=== PATIENT | female | born 1980 | race Caucasian/White ===

== ENCOUNTER 2019-02-19 14:12 | Outpatient (CLI) | payer OTHER, SELFPAY ==
[2019-02-19 14:49] LABS: Abs Immature Grans 0.02 k/cumm (0.0-0.09); Absolute Basophil Count 0.05 k/cumm (0.0-0.2); Absolute Eosinophil Count 0.25 k/cumm (0.0-0.7); Absolute Lymphocyte Count 2.14 k/cumm (1.2-3.4); Absolute Monocyte Count 0.88 k/cumm (0.11-0.7); Absolute Neutrophil Count 6.93 k/cumm (1.2-6.7); Basophils % 0.5; Eosinophils % 2.4; HCT 39.4 % (36.0-46.0); HGB 13.1 g/dL (12.0-15.5); Immature Grans % 0.2; Lymphocytes % 20.8; Mean Corp. HGB Concentration 33.2 g/dL (32.0-36.0); Mean Corpuscular Hemoglobin 28.3 pg (27.0-33.0); Mean Corpuscular Volume 85.1 fL (80-95); Mean Platelet Volume 9.1 fL (8.0-11.0); Monocytes % 8.6; Neutrophils % 67.5; Platelet Count 393 x1000/uL (130-400); RBC 4.63 m/cumm (4.00-5.20); White Blood Cell Count 10.27 k/cumm (4.4-10.8)
[2019-02-19 15:28] LABS: *AMPHETAMINES SCREEN URINE Negative (Negative); *BARBITURATES SCREEN URINE Negative (Negative); *BENZODIAZEPINES SCREEN URINE Negative (Negative); Cannabinoids THC Negative (Negative); Cocaine Screen,Urine Negative (Negative); METHADONE URINE SCREEN Negative (Negative); OPIATES URINE SCREEN Negative (Negative)
[2019-02-19 15:33] LABS: Tricyclic Antidepressants Negative (Negative)
[2019-02-20 10:04] LABS: Varicella IgG Antibody Positive
[2019-02-20 10:17] LABS: Rubella IgG Ab (UVM) Positive; Syphilis Serology (RPR) Negative (Negative)
[2019-02-20 10:32] LABS: Hepatitis B Surface Ag Negative (NEGAT)
[2019-02-20 10:43] LABS: Hepatitis C Ab w Rflx HCV PCR Negative (NEGAT)
[2019-02-20 11:35] LABS: HIV-1/2 Ag & Ab Screen Negative (NEGAT)
== END 2019-02-19 14:32 ==
PROVIDERS: PCP Nurse Practitioner Family; Visit Provider Obstetrics & Gynecology
DX: Z34.91 Encounter for supervision of normal pregnancy, unspecified, first trimester (principal); Z11.4 Encounter for screening for human immunodeficiency virus [HIV]; Z11.59 Encounter for screening for other viral diseases; Z01.84 Encounter for antibody response examination
CPT/HCPCS: 80055; 80307; 86787; 86803; 86850; 86900; 86901; 87340; 87389; 84443; 86592; 86762; 87086

== ENCOUNTER 2019-03-13 16:35 | Outpatient (CLI) | payer OTHER, SELFPAY | END 2019-03-13 16:55 | PROVIDERS: PCP Nurse Practitioner Family; Visit Provider Obstetrics & Gynecology | DX: Z34.91 Encounter for supervision of normal pregnancy, unspecified, first trimester (principal) | CPT/HCPCS: 36415; 84702 ==

== ENCOUNTER 2019-03-15 16:59 | Outpatient (CLI) | payer OTHER, SELFPAY | END 2019-03-15 17:19 | PROVIDERS: PCP Nurse Practitioner Family; Visit Provider Obstetrics & Gynecology | DX: Z34.91 Encounter for supervision of normal pregnancy, unspecified, first trimester (principal) | CPT/HCPCS: 36415; 84702 ==

== ENCOUNTER 2019-03-27 07:34 | Outpatient (CLI) | payer OTHER, SELFPAY | END 2019-03-27 07:54 | PROVIDERS: PCP Nurse Practitioner Family; Visit Provider Obstetrics & Gynecology | DX: O02.1 Missed abortion (principal) | CPT/HCPCS: 36415; 86850; 86900; 86901; 90384 ==

== ENCOUNTER 2019-06-14 08:47 | Outpatient (CLI) | payer OTHER, SELFPAY | END 2019-06-14 09:07 | PROVIDERS: PCP Nurse Practitioner Family; Visit Provider Obstetrics & Gynecology | DX: O20.0 Threatened abortion (principal) | CPT/HCPCS: 36415; 86850; 90384 ==

== ENCOUNTER 2019-09-03 08:39 | Outpatient (CLI) | payer OTHER, SELFPAY ==
[2019-09-04 11:16] LABS: Lyme Ab w Rflx to Lyme Confirm Negative (Negative)
[2019-09-06 03:53] LABS: Anaplasma phagocytophilum Negative (Negative); B. miyamotoi PCR Negative (Negative); Babesia divergens/MO-1 Negative (Negative); Babesia duncani Negative (Negative); Babesia microti Negative (Negative); Ehrlichia chaffeensis Negative (Negative); Ehrlichia ewingii/canis Negative (Negative); Ehrlichia muris eauclairensis Negative (Negative)
== END 2019-09-03 08:59 ==
PROVIDERS: PCP Nurse Practitioner Family; Visit Provider Nurse Practitioner Family
DX: M25.50 Pain in unspecified joint (principal); H49.03 Third [oculomotor] nerve palsy, bilateral; H53.2 Diplopia
CPT/HCPCS: 36415; 87798; 86618

== ENCOUNTER 2019-12-28 01:47 | Outpatient (CLI) | payer OTHER, SELFPAY ==
[2019-12-28 15:22] LABS: Abs Immature Grans 0.02 10^3/uL (0.0-0.06); Absolute Basophil Count 0.05 10^3/uL (0.0-0.2); Absolute Eosinophil Count 0.22 10^3/uL (0.0-0.7); Absolute Lymphocyte Count 1.65 10^3/uL (1.2-3.4); Absolute Monocyte Count 0.86 10^3/uL (0.1-0.8); Absolute Neutrophil Count 5.76 10^3/uL (1.2-6.7); Basophils % 0.6; Eosinophils % 2.6; HCT 38.5 % (36.0-46.0); HGB 12.5 g/dL (11.2-15.7); Immature Grans % 0.2; Lymphocytes % 19.3; MCH 26.8 pg (27.0-33.0); MCHC 32.5 % (32.0-36.0); MCV 82.4 fL (80-95); MPV 9.9 fL (8.0-11.0); Neutrophils % 67.3; Nucleated RBC 0 %; Platelet Count 300 10^3/uL (130-400); RBC 4.67 10^6/uL (3.93-5.22); RDW 17.7 % (11.7-14.6); RDW-SD 53.2 fL; WBC 8.56 10^3/uL (4.4-10.8)
[2019-12-28 16:18] LABS: TSH (W/Ref FT4) 2.44 uIU/mL (0.36-3.74)
[2019-12-28 17:29] LABS: *AMPHETAMINES SCREEN URINE Negative (Negative); *BARBITURATES SCREEN URINE Negative (Negative); *BENZODIAZEPINES SCREEN URINE Negative (Negative); Cannabinoids THC Negative (Negative); Cocaine Screen,Urine Negative (Negative); METHADONE URINE SCREEN Negative (Negative); OPIATES URINE SCREEN Negative (Negative)
[2019-12-28 17:31] LABS: Tricyclic Antidepressants Negative (Negative)
[2019-12-31 10:03] LABS: Hepatitis B Surface Ag Negative (Negative)
[2019-12-31 10:47] LABS: Hepatitis C Ab w Rflx HCV PCR Negative (Negative)
[2019-12-31 11:03] LABS: HIV-1/2 Ag & Ab Screen Negative (Negative)
[2019-12-31 12:15] LABS: Rubella IgG Ab (UVM) Positive (See Note); Varicella IgG Antibody Positive (See Note)
[2019-12-31 16:28] LABS: Syphilis Total Ab w/Reflex Nonreactive (Nonreactive)
[2020-01-03 11:33] LABS: Buprenorphine Negative; Norbuprenorphine Negative
== END 2019-12-28 02:07 ==
PROVIDERS: PCP Nurse Practitioner Family; Visit Provider Advanced Practice Midwife
DX: Z34.91 Encounter for supervision of normal pregnancy, unspecified, first trimester (principal)
CPT/HCPCS: 36415; 80307; 86787; 86803; 86850; 86900; 86901; 87340; 87389; 84443; 85025; 86762; 86780; 87086

== ENCOUNTER 2020-01-24 18:28 | Inpatient (IN) | payer OTHER, MEDICAID, SELFPAY ==
[2020-01-24] VITALS (15 sets, daily range): BP systolic 146–189; BP diastolic 78–110; PULSE 63–75; RESP 17–18; TEMP 36.6–37.1; O2SAT 100
--- NOTE | 2020-01-24 17:06 | NUR.NOTE ---
no fhr detected with doppler/us. demiseNursing Note:
--- NOTE | 2020-01-24 18:45 | HPE_ITS ---
Date of service: 01/24/20 Time of Service: 18:45 Assessment and Plan Assessment and plan (1) demise before 20 weeks with retention of fetus: Start date: 01/24/20 Start time: 16:58 Status: Acute Assessment and plan: 39 yo @ 16 wks called at 1615 today to report lower abd cramps menstrual in nature and the appearance of brown vaginal mucous with a foul odor. Pt has had 2 miscarriages in the recent past and was very worried today. She came to the for FHT check and evaluation of spotting. No FHT were detected with doptone, bedside ultrasound done transabdominally, no movement or cardiac activity were seen. Katelyn Foster summoned to bedside where he repeated the ultrasound to confirm IUFD. Femur length consistent with 14 wks. Pt appropriately grieving, pt notified family, options discussion with Dr. Zepeda occurred. Pt desires misoprostel induction to begin today. A: 2nd trimester loss, AMA, hypertension, increased risk for PPH due to hx and current HTN, Rh neg P: Collaborative management, admit, pre-e labs, T&S, COVID swab, IV access, begin misoprostel vaginal protocol per Dr. Zepeda, pain medication as requested by pt, anti-hypertensive Rx per Dr. Zepeda. (2) Hypertension affecting , antepartum: Start date: 01/24/20 Start time: 19:05 Status: Acute Assessment and plan: BP's since arrival have been consistently elevated 170's over 90-100 Reflexes are nml, no dependent edema Pt denies NAVA or visual changes, no RUQ pain Pt has hx pre-eclampsia with previous , managed with labetalol Initial BP at dating ultrasound in first trimester 144/84 A: HTN of unknown etiology, r/o essential HTN vs associated pathology P: Per Dr. Zepeda, will give 20 mg labetalol IV, hand off to Dr. Gonsalez this evening OB-HPI Labor/Delivery History of Present Illness Reason for Visit: came in for FHT check, c/o cramps/brown spotting Chief Complaint: Other (16 wks by dating, IUFD with 14 wk femur length, missed 2nd trimester SAB). ANDRAE Calculator 2 Estimated Delivery Date Method Current WG Current Estimate 07/13/20 Ultrasound #1 15w 4d Other Estimates 07/11/20 LMP (Certain) 15w 6d History of Present Expected Delivery Route/Plan - CNM FOB - Specific Issues/Plan 1. AMA: declines all optional screening (declination signed) & MFM consult w/ Level II usg. 2. Declined pelvic @ IOB 2` to increased anxiety r/t SAB x2 thus GC/CT @ 2nd pnv. 3. Increased for Pre-eclampsia, accepts low dose ASA to start 12/30/19. 4. Rh negative, RhoGam @ 28 wks Assessment: History Reviewed & Current Informed Consent Informed Consent: Induction of Labor (At 16 wks, IUFD) and Risk,Benefits,Alternatives Discussed Review of Systems All systems reviewed & are unremarkable except as noted in HPI and below PFSH Medical History (Updated 01/24/20 @ 18:56 by Veronica Molina) Asthma Complex cyst of left ovary noted 04/2014. 3.6cm. Unchanged in size or appearance 08/07/14. Pt declines Endometriosis Onset of sx 19yo. 1999 2006 at time of diagnostic laparoscopy. Rx with DepoLupron x6mo. 2007 breastfed until 2008 2010 breastfed until 2011 NFP since then. OCPs do not agree with pt. Endometriosis determined by laparoscopy SI joint discomfort With previous pregnancies. Referred to PT 07/01/15. Surgical History Diagnostic Laproscopy (~2006) Dr Higgins stage 4 endometriosis Hernia Repair, Incisional (02/03/16) Family History Sister Endometriosis s/p EDNA/BSO @ 32yo Mother Essential hypertension Personal history of malignant neoplasm basal cell skin cancer Father Diabetes Elevated Hgb A1C Sister Cerebral aneurysm Sister No problems noted. Sister No problems noted. Social History Smoking/Tobacco Use Status: Never Drug use: Never Current gender identity: female Seatbelt use: always History History 5 Para 3 Hx # Term Pregnancies 3 Multiple births 0 Hx # Pregnancies 0 Ectopic pregnancies 0 AB induced 0 Hx Number of Living Children 3 AB spontaneous 2 Past Pregnancies Del. Date GA/Weeks # Outcome Route Wgt Sex Labor Lgth Anesthes ia Location Prov Complic 05/15/08 38 No Successful vaginal 8 lb 13 oz Male 18 hr [facility]. 04/04/11 40 No Successful vaginal 8 lb 12 oz Female 8 hrs [facility] w/ hemorrhage 10/25/15 37 No Successful vaginal 7 lb 8 oz Female 24 hr anea 03/21/19 8 06/18/19 6 Unsuccessful Delivery Date: 05/15/08 probable pre-eclampsia w/o mgso4. GARRETT CANO Delivery Date: 04/04/11 pt denies transfusion ebl? went home just over 24 hrs delivery. ? if pph. GARRETT CANO Delivery Date: 10/25/15 iol for pre-eclampsia w/ mgso4. and hydralazine. TAMIKOGAVINGARRETT KIM Delivery Date: 03/21/19 Pt had a miscarriage at home on 03/21/19. Pt in today for her Kelly Cohen FISHER NET,Elida Delivery Date: 06/18/19 SAB 06/18/19 at 6.4 weeks gestation, [facility] Home Medications and Allergies Home Medications Medication Instructions Recorded Confirmed Type vitamin-ferrous fumarate 1 tab PO DAILY 05/28/19 12/13/19 History 28 mg iron-folic acid 800 mcg tablet loratadine 10 mg tablet 10 mg PO DAILY 11/06/19 12/13/19 History acetaminophen 325 mg tablet 325 - 650 mg PO Q4H PRN tab-cap 12/28/19 History Allergies Allergy/AdvReac Type Severity Reaction Status Date / Time ENVIRONMENTAL Allergy Mild Uncoded 12/28/19 13:25 Exam Physical Exam Vital signs: Pulse BP 72 172/105 H 01/24/20 17:10 01/24/20 17:10 Vital Signs Reviewed: Yes Constitutional Constitutional: no acute distress, average body habitus and cooperative Comments: appropriately grieving Detailed Labor and Delivery Exam Keller Score: Cervical Points Exam 0 1 2 3 Dilation Closed 1-2cm 3-4 cm 5-6cm Effacement 0-30% 40-50% 60-70% 80% Consistency Firm Medium Soft Station -3 -2 -1,0 +1,+2 Position Posterior Mid Anterior Fetus A Assessment Note: , no movement or cardiac activity on abd ultrasound HEENT Exam HEENT Exam: Normal Neck Exam Neck Exam: Normal Respiratory Exam Respiratory Exam: Normal Cardiovascular Exam Cardiovascular Exam: Abnormal (hypertension noted upon admission) Abdominal Exam Abdominal Exam: Normal Exam Exam: Normal Extremities Exam Extremities Exam: Normal Back/Spine/Pelvis Exam Back Exam: Normal Pelvis Adequate: Yes Skin Exam Skin Exam: Normal Neurological Exam Neurological Exam: Normal (normoreflexic) Psychiatric Exam Psychiatric Exam: Normal Results Results Group Beta Strep: N/A Blood Type: O- Rubella Status: Immune Varicella Immunity: Immune Risk Assessment Risk for Shoulder Dystocia Historical/Initial OB: NEGATIVE FOR: Pelvic Abnormality, Pre- BMI>30, Previous Shoulder Dystocia or Previous Macrosomia Increased Risk?: No (as of IOB 12/28/19 al) Risk for Pre-Eclampsia Daily Dose ASA Indicated: Yes (12/28/19 h/o pre-eclampsia w/ last & probably w/ 1st. Tx w/ mgso4 .) Date Initiated/Initials: 12/28/19 al Yes, if one or more: POSTIVE FOR: Hx Pre-E/Gest HTN; NEGATIVE FOR: Chronic HTN, Multiple Gestation, Pre-gestational DM, Renal Disease, Systemic Lupus or APA Syndrome Yes, if 2 or more: POSITIVE FOR: Age>= 35 yrs and Mother/Sister w/ Pre-E; NEGATIVE FOR: Nulliparity, >10yr btwn pregnancies, BMI>30, ethinicty or Previous IUGR Risk for Post- Hemorrhage Initial: POSITIVE FOR: Previous PPH (2nd w/o transfusion ? ebl @ IOB 12/28/19 al); NEGATIVE FOR: Multiple Gestation, Known Clotting Deficiency, Grand Multiparity or Anticoagulation At Risk?: Yes (IOB 12/28/19:pt self reports h/o pph as told to her by Dr. Riggins. al) Risks Reviewed Risks Reviewed Upon Admission: Yes
[2020-01-24 19:13] LABS: HCT 40.4 % (36.0-46.0); HGB 13.2 g/dL (11.2-15.7); MCH 27.8 pg (27.0-33.0); MCHC 32.7 % (32.0-36.0); MCV 85.1 fL (80-95); Platelet Count 280 10^3/uL (130-400); RBC 4.75 10^6/uL (3.93-5.22); RDW 15.9 % (11.7-14.6); RDW-SD 50.7 fL
[2020-01-24 19:38] LABS: ALT 13 U/L (14-59); AST 14 U/L (15-37); Albumin 3.8 g/dL (3.4-5.0); Alkaline Phosphatase 121 U/L (46-116); Anion Gap 13.1 mmol/L (3-11); BUN 8 mg/dL (7-18); Bilirubin, Total 0.2 mg/dL (0.2-1.0); CO2 21.9 mmol/L (21.0-32.0); CREATININE 0.61 mg/dL (0.55-1.02); Calcium 9.3 mg/dL (8.5-10.1); Chloride 103 mmol/L (98-107); Glucose 94 mg/dL (74-106); Potassium 3.2 mmol/L (3.5-5.1); Sodium 138 mmol/L (136-145); Total Protein 7.6 g/dL (6.4-8.2); Uric Acid 5.1 mg/dL (2.6-6.0)
[2020-01-24] MEDS: miSOPROStol 200 MCG TAB (19:54)
[2020-01-24] MEDS: Labetalol 100 MG/20 ML VIAL 20 MG IVP (20:00)
[2020-01-24 20:31] LABS: HCG Quant, Pregnancy 1629 mIU/mL (1-3)
--- NOTE | 2020-01-24 20:52 | W.PM.OBNL1 ---
Date of service: 01/24/20 Time of Service: 20:52 Informed Consent Informed Consent: Induction of Labor (At 16 wks, IUFD) and Risk,Benefits,Alternatives Discussed Assessment and Plan Assessment and plan (1) demise before 20 weeks with retention of fetus: Status: Acute Assessment and plan: 200 mcg miprostel inserted into posterior fornix SVE 2-3 cm dilation, lower segment firm and tense with contents No palpable parts, presentation is cephalic per ultrasound previously done A: 2nd trimester SAB in progress P: first miso dose administered, observe for bleeding, plan of care reviewed with Dr. Gonsalez (2) Hypertension affecting , antepartum: Status: Acute Assessment and plan: 20 mg labetalol given IVP with reduction of BP to 150's over 90's Lab results reviewed with Dr. Gonsalez, urine sample not sent Lab results are all WNL, including HCG 1620 and nml TSH A: Essential chronic HTN P: Will repeat labetalol dose if BP rises, may consider procardia Will offer tylenol and Vistaril for NAVA pain Dr. Gonsalez will be in to speak with pt and Objective Abnormal lab results 01/24/20 01/24/20 01/24/20 Range/Units 19:00 19:00 19:00 WBC 13.00 H (4.4-10.8) 10^3/uL RDW 15.9 H (11.7-14.6) % Potassium 3.2 L (3.5-5.1) mmol/L Anion Gap 13.1 H (3-11) mmol/L AST 14 L (15-37) U/L ALT 13 L (14-59) U/L Alkaline Phosphatase 121 H (46-116) U/L Beta HCG, Quant 1629 H (1-3) mIU/mL Temp Pulse Resp BP 98.7 F 72 17 172/105 H 01/24/20 20:23 01/24/20 20:23 01/24/20 20:23 01/24/20 20:23 Laboratory Results WBC 13.00 10^3/uL (4.4-10.8) H 01/24/20 19:00 RBC 4.75 10^6/uL (3.93-5.22) 01/24/20 19:00 Hgb 13.2 g/dL (11.2-15.7) 01/24/20 19:00 Hct 40.4 % (36.0-46.0) 01/24/20 19:00 MCV 85.1 fL (80-95) 01/24/20 19:00 MCH 27.8 pg (27.0-33.0) 01/24/20 19:00 MCHC 32.7 % (32.0-36.0) 01/24/20 19:00 RDW 15.9 % (11.7-14.6) H 01/24/20 19:00 Plt Count 280 10^3/uL (130-400) 01/24/20 19:00 MPV 10.0 fL (8.0-11.0) 01/24/20 19:00 Sodium 138 mmol/L (136-145) 01/24/20 19:00 Potassium 3.2 mmol/L (3.5-5.1) L 01/24/20 19:00 Chloride 103 mmol/L (98-107) 01/24/20 19:00 Carbon Dioxide 21.9 mmol/L (21.0-32.0) 01/24/20 19:00 Anion Gap 13.1 mmol/L (3-11) H 01/24/20 19:00 BUN 8 mg/dL (7-18) 01/24/20 19:00 Creatinine 0.61 mg/dL (0.55-1.02) 01/24/20 19:00 Estimated GFR/1.73 m2 >= 60.00 (mL/min/1.73m2) 01/24/20 19:00 Glucose 94 mg/dL (74-106) 01/24/20 19:00 Uric Acid 5.1 mg/dL (2.6-6.0) 01/24/20 19:00 Calcium 9.3 mg/dL (8.5-10.1) 01/24/20 19:00 Total Bilirubin 0.2 mg/dL (0.2-1.0) 01/24/20 19:00 AST 14 U/L (15-37) L 01/24/20 19:00 ALT 13 U/L (14-59) L 01/24/20 19:00 Alkaline Phosphatase 121 U/L (46-116) H 01/24/20 19:00 Total Protein 7.6 g/dL (6.4-8.2) 01/24/20 19:00 Albumin 3.8 g/dL (3.4-5.0) 01/24/20 19:00 TSH 1.80 uIU/mL (0.36-3.74) 01/24/20 19:00 Beta HCG, Quant 1629 mIU/mL (1-3) H 01/24/20 19:00 Patient ABO/Rh O Negative 01/24/20 19:00 Antibody Screen Negative 01/24/20 19:00 Subjective Patient Reports: New Complaints Interval history since last seen: Pt reports increasing low back pain, vaginal mucous is bloody now. has arrived and his questions have been answered to the best of my ability. Pt is coping well, verbalizing appropriately. SHe also reports an oncoming migraine NAVA and is requesting pain medication for this. Results Hemoglobin/Hematocrit: Hgb 13.2 g/dL (11.2-15.7) 01/24/20 19:00 Hct 40.4 % (36.0-46.0) 01/24/20 19:00 Abnormal Lab Findings: Abnormal Labs 01/24/20 01/24/20 01/24/20 19:00 19:00 19:00 WBC 13.00 H RDW 15.9 H Potassium 3.2 L Anion Gap 13.1 H AST 14 L ALT 13 L Alkaline Phosphatase 121 H Beta HCG, Quant 1629 H
[2020-01-24] MEDS: Acetaminophen 500 MG TAB 1000 MG PO (21:17)
[2020-01-24] MEDS: Normal Saline Flush 10 ML SYR IVP (21:19)
--- NOTE | 2020-01-24 21:35 | PLAC_PTH ---
PATIENT: Charla Ellison LOC: OBS U#:[id number] AGE/SX: 39/F ROOM: OBS.300 RE01/24/[address]: Leidy Molina CNM : 1980 BED: A DIS: 01/25/2020 SPEC #: [id number] RECD: 01/25/20 12:30 STATUS: NIVIA REQ #: [id number] BONNIE: 01/24/20 21:[address]: Leidy Molina DEPT: Surgical Specimen RECD BY: Rebecca Pedraza ENTERED: 01/25/20 12:36 SP TYPE: PLAC OTHR DR: Jcarlos Mirza Tissues: 1 - PLACENTA (NOT 3RD TRIMESTER) Procedures: SPECIAL STAIN 2 GROSS AND MICRO LEVEL 4 Comments: [id number]
[2020-01-24] MEDS: miSOPROStol 200 MCG TAB 400 MCG PO (21:40)
--- NOTE | 2020-01-24 21:43 | W.OBDELIVERY ---
Date of service: 01/24/20 Time of Service: 21:43 OB Labor/ Delivery Information Baby A Delivery Delivery Method: Spontaneaous Presentation: Cephalic Cephalic Position: N/A Delivery Outcome: Stillborn Providers Nurse Rubber Tester: Veronica Molina Nurse: Inud Patel Labor/Delivery Information Number of Babies in Womb: 1 Steroids Given: None Reason Steroids Not Administered: N/A Group Beta Strep: N/A Antibiotics Administered: No Rubella Status: Immune Blood Type: O- Varicella Immunity: Immune Maternal Complications: None Shoulder Dystocia: No Note: After vaginal miso was placed, pt felt hungry and had a half sandwich. BP settled to 150's over 80's after one dose of 20 mg labetalol IVP, pt given 1 gm tylenol PO for NAVA. Shortly thereafter pt became increasingly uncomfortable with increased bloody vaginal mucous, then a stillborn fetus slide out onto the bed. Baby appears to be male on close inspection and grossly anatomically nml, wrapped in a clean towel for mom to hold. On vaginal exam, moderate clots were evacuated from vault and placental tissue subsequently expressed appearing intact with membranes attached. No lacerations visualized on inspection of vulva. Bleeding slowed to very minimal rubra, 400 mcg misoprostel PO given to pt, pt and left alone holding baby for a few minutes. Dr. Gonsalez arrived on unit after delivery completed and went to speak with pt and . Appropriate grieving and questions throughout the delivery process. EBL 250 Stages of Labor Infant Delivery Date-Baby A: 01/24/20 Infant Delivery Time-Baby A: 21:25 Placenta Delivery Date-Baby A: 01/24/20 Placenta Delivery Time-Baby A: 21:35 Labor-Stage 3 Duration: 10 minutes Placenta Cultured: No Placenta Status: Delivered Baby A Gender: Male Gestational Status: (14 wk size)
[2020-01-24] MEDS: Labetalol 100 MG TAB PO (22:26)
[2020-01-25] MEDS: hydrOXYzine PAMOATE 25 MG CAP 50 MG PO
[2020-01-25 01:35] VITALS: BP 126/62; PULSE 67; RESP 18
--- NOTE | 2020-01-25 03:02 | NUR.NOTE ---
Nursing Note: 1953 pt recieved cytotec 100 mg vaginally . At 2124 pt passed fetus spontaneously appeared to be a male fetus. 2134 spontaneously dliverd placenta. 2139 given 400 mg of po miso . vitals monitored and obsereved for increased bleeding. parents desire to take fetus home to [place], father brandy into see family, Dr Gonsalez also here to see patient. Discussed started po labetolol to be started for high blood pressure. yoni verbalizes understanding and is in agreement with this plan.
[2020-01-25 05:21] VITALS: BP 128/61; PULSE 57; RESP 18
--- NOTE | 2020-01-25 07:53 | DSE_ITS ---
Date of service: 01/25/20 Time of Service: 07:54 DS: Diagnosis Discharge Diagnosis (1) demise before 20 weeks with retention of fetus: Status: Acute Asessment and Plan: Delivered, resolved, uncomplicated course Declines BCM (2) Hypertension affecting , antepartum: Status: Acute Asessment and Plan: In consultation with Dr. Gonsalez, start labetalol 100 mg PO BID RTO 01/27 for BP check and f/up Discharge Plan Disposition Patient Disposition: HOME Condition: Good Discharge Details Reason For Visit: 2ND TRIMESTER IUFD Admit Date/Time: 01/24/20 18:28 Admit Provider: Veronica Molina Attending Provider: Veronica Molina Primary Care Provider: Jcarlos Mirza Hospital Course Hospital Course: completed miscarriage after 1 dose of misprostel, nml recovery, discharge at 12 hours PP. Started on HTN medication, s/p RhoGam injection. Home Meds and New Rx's Prescriptions: No Action loratadine [Claritin] 10 mg tablet 10 mg PO DAILY RF: 0 vit-iron fum-folic ac [ Vitamin with Minerals] 28 mg iron- 800 mcg tablet 1 tab PO DAILY RF: 0 acetaminophen [Tylenol] 325 mg tablet 325 - 650 mg PO Q4H PRNRF: 0 labetalol 100 mg tablet 100 mg PO BID Qty: 60 RF: 1 Discharge Instructions Additional Instructions: Please make an appointment with an MD or a staff certified nurse midwife for Saturday 01/27 for BP check and follow-up Activity:: Activity as Tolerated Equipment/Supplies:: No Equipment Needed Diet:: Normal Diet Discharge Orders Discharge Orders: Discharge Order (Routine); Ordered 01/25/20 Ordered By: Veronica Molina OB:DS Summary Summary Vaginal Delivery Method: Spontaneaous Contraception Discussed Contraception Discussed: Yes Contraceptive Plan: Not planning to use, Qulin Infant Gender-Baby A: Male Status at Discharge Functional status at discharge: independent ambulation Overall status at discharge: patient is progressing back to baseline Mental Status: mental status grossly normal Speech and Movement: speech and movement normal Mood: congruent mood Affect: normal affect and sad (appropriate grieving) Exam Physical Exam Vital signs: Temp Pulse Resp BP Pulse Ox 98.7 F 57 L 18 128/61 100 01/24/20 20:23 01/25/20 05:21 01/25/20 05:21 01/25/20 05:21 01/24/20 20:40 Constitutional Constitutional: no acute distress Respiratory Exam Respiratory Exam: Normal Cardiovascular Exam Cardiovascular Exam: Normal (normotensive on oral labetalol BID) Abdominal Exam Comments: soft and NT Exam Patient deferred: external exam Skin Exam Skin Exam: Normal Neurological Exam Neurological Exam: Normal Psychiatric Exam Psychiatric Exam: Normal [facility] Medical History Asthma Complex cyst of left ovary noted 04/2014. 3.6cm. Unchanged in size or appearance 08/07/14. Pt declines Endometriosis Onset of sx 19yo. 1999 2006 at time of diagnostic laparoscopy. Rx with DepoLupron x6mo. 2007 breastfed until 2008 2010 breastfed until 2011 NFP since then. OCPs do not agree with pt. Endometriosis determined by laparoscopy SI joint discomfort With previous pregnancies. Referred to PT 07/01/15. Surgical History Diagnostic Laproscopy (~2006) Dr Higgins stage 4 endometriosis Hernia Repair, Incisional (02/03/16) Family History Sister Endometriosis s/p EDNA/BSO @ 32yo Mother Essential hypertension Personal history of malignant neoplasm basal cell skin cancer Father Diabetes Elevated Hgb A1C Sister Cerebral aneurysm Sister No problems noted. Sister No problems noted. Social History Smoking/Tobacco Use Status: Never Alcohol Intake: never Drug use: Never Substance use type: does not use Current gender identity: female Seatbelt use: always Do you feel safe at home: Yes Do you feel safe in your relationship?: Yes History History 5 Para 3 Hx # Term Pregnancies 3 Multiple births 0 Hx # Pregnancies 0 Ectopic pregnancies 0 AB induced 0 Hx Number of Living Children 3 AB spontaneous 2 Past Pregnancies Del. Date GA/Weeks # Outcome Route Wgt Sex Labor Lgth Anesthes ia Location Prov Complic 05/15/08 38 No Successful vaginal 8 lb 13 oz Male [address] [facility]. 04/04/11 40 No Successful vaginal 8 lb 12 oz Female 8 hrs [facility] w/ hemorrhage 10/25/15 37 No Successful vaginal 7 lb 8 oz Female 24 hr anea 03/21/19 8 06/18/19 6 Unsuccessful Delivery Date: 05/15/08 probable pre-eclampsia w/o mgso4. GARRETT CANO Delivery Date: 04/04/11 pt denies transfusion ebl? went home just over 24 hrs delivery. ? if pph. GARRETT ACNO Delivery Date: 10/25/15 iol for pre-eclampsia w/ mgso4. and hydralazine. GARRETT CANO Delivery Date: 03/21/19 Pt had a miscarriage at home on 03/21/19. Pt in today for her Rho Cara Vicki LEARNING OPERATIONS SPECIALIST,Elida Delivery Date: 06/18/19 SAB 06/18/19 at 6.4 weeks gestation, Dorothy Castillo MD DS: Data Vitals/I&O Vitals and I&O: Vital Signs Temperature 98.7 F 01/24/20 20:23 Pulse 57 L 01/25/20 05:21 Pulse Rhythm Regular 01/24/20 20:37 Respiratory Rate 18 01/25/20 05:21 Blood Pressure 128/61 01/25/20 05:21 Blood Pressure Mean 83 01/25/20 05:21 Pulse Oximetry 100 01/24/20 20:40 Oxygen Delivery Method Room Air 01/24/20 19:46 Oxygen Flow Rate 0 01/24/20 19:46 Pain Level 3 01/24/20 19:46 Comment 01/24/20 19:52 Intake & Output 01/24/20 01/24/20 01/25/20 11:59 23:59 11:59 Weight 180 lb
[2020-01-25] MEDS: Labetalol 100 MG TAB PO (08:47)
--- NOTE | 2020-01-25 08:57 | W.PM.OBPNV1 ---
Date of service: 01/25/20 Time of Service: 08:57 Assessment and Plan Assessment and plan (1) History of loss: Status: Acute Assessment and plan: exam and pt condition is stable Normotensive this morning Pt's family personal clergy arrived last night to provide congregation/spiritual support Pt is discharged today in good condition after RhoGam injection Orders and instructions for f/up care and for anti-hypertensive medication have been reviewed with pt BCM declined F/up appt recommended to pt for 3 days from today. (2) Hypertension: Status: Chronic Assessment and plan: Pt states her BP has been somewhat elevated for years. She recounts that after she was induced for pre-eclampsia at her last live , she was prescribed labetalol but it made her BP go too low and she fainted. She is eager to avoid that happening again. She declines to take her medication BID as instructed but has decided to check her BP at home and take medication only if she sees BP elevation. Pt was instructed that a BP check with MD and a f/up appt is recommended in 3 days, pt declines and states she plans to go to see if she can renew a cancelled plan for vacation to [place] and may not be back until 1 week from now. She declines BCM and expects to become in the near future. She declines OB consult to discuss three SAB's in past 2 years, she states she believes her advanced maternal age status is the most likely issue. A: uncomplicated completed miscarriage, chronic HTN, AMA P: I encouraged pt to take her BP daily and to consider taking labetalol as ordered rather than regarding it as a prn medication Advised entering her next with her BP under control would be advantageous, and that labetalol is a medication of choice during As pt declines to return for f/up with the OB service, I recommended she see her PCP as soon as she is able Pt is discharged to home today after her RhoGam injection is given Subjective Subjective Interval history: Pt to be discharged today after completed miscarriage assisted by 1 dose of misoprostel. Essential chronic HTN has been diagnosed, pt notes her BP this morning is nml and declines to take medication as ordered. Patient comments: No complaints Patient's Mood: appropriate grieving, intermittently sad Exam Physical Exam Vital signs: Temp Pulse Resp BP Pulse Ox 98.7 F 57 L 18 128/61 100 10/01/20 20:23 01/25/20 05:21 01/25/20 05:21 01/25/20 05:21 01/24/20 20:40 Constitutional Constitutional: no acute distress HEENT Exam HEENT Exam: Normal Neck Exam Neck Exam: Normal Respiratory Exam Respiratory Exam: Normal Cardiovascular Exam Cardiovascular Exam: Normal (normotensive on oral labetalol BID) Exam Patient deferred: external exam Back/Spine/Pelvis Exam Back Exam: Normal Skin Exam Skin Exam: Normal Neurological Exam Neurological Exam: Normal Psychiatric Exam Psychiatric Exam: Normal Results Hemoglobin/Hematocrit: Hgb 13.2 g/dL (11.2-15.7) 01/24/20 19:00 Hct 40.4 % (36.0-46.0) 01/24/20 19:00 Abnormal Lab Findings: Abnormal Labs 01/24/20 01/24/20 01/24/20 19:00 19:00 19:00 WBC 13.00 H RDW 15.9 H Potassium 3.2 L Anion Gap 13.1 H AST 14 L ALT 13 L Alkaline Phosphatase 121 H Beta HCG, Quant 1629 H
[2020-01-25 11:01] VITALS: BP 119/76; PULSE 80; RESP 16; TEMP 37.2; O2SAT 98
--- NOTE | 2020-01-25 11:06 | NUR.NOTE ---
D/C ambulatory through main entrance to go home, accompanied by . Had remembrance box in her arms.Nursing Note:
== END 2020-01-25 10:50 | disposition home or self-care (01) | DRG 807 ==
LOC: OBS 18:39
PROVIDERS: Admitting Provider Advanced Practice Midwife; PCP Nurse Practitioner Family; Visit Provider Advanced Practice Midwife
DX: O02.1 Missed abortion (principal); Z37.1 Single stillbirth; N96 Recurrent pregnancy loss; O09.522 Supervision of elderly multigravida, second trimester; I10 Essential (primary) hypertension; Z29.13 Encounter for prophylactic Rho(D) immune globulin; Z3A.16 16 weeks gestation of pregnancy
CPT/HCPCS: 80053; 85027; 86850; 86900; 86901; 88305; 90384; 59200; 84443; 84550; 84702; 88313; J2790

== ENCOUNTER 2020-02-12 01:32 | Outpatient (CLI) | payer OTHER, MEDICAID, SELFPAY ==
[2020-02-12 07:42] LABS: Abs Immature Grans 0.01 10^3/uL (0.0-0.06); Absolute Basophil Count 0.05 10^3/uL (0.0-0.2); Absolute Eosinophil Count 0.35 10^3/uL (0.0-0.7); Absolute Lymphocyte Count 1.92 10^3/uL (1.2-3.4); Absolute Monocyte Count 0.67 10^3/uL (0.1-0.8); Absolute Neutrophil Count 4.06 10^3/uL (1.2-6.7); Basophils % 0.7; HCT 37.5 % (36.0-46.0); HGB 12.4 g/dL (11.2-15.7); Immature Grans % 0.1; Lymphocytes % 27.2; MCH 28.9 pg (27.0-33.0); MCHC 33.1 % (32.0-36.0); MCV 87.4 fL (80-95); MPV 9.8 fL (8.0-11.0); Monocytes % 9.5; Neutrophils % 57.5; Nucleated RBC 0 %; Platelet Count 286 10^3/uL (130-400); RBC 4.29 10^6/uL (3.93-5.22); RDW 14.6 % (11.7-14.6); RDW-SD 46.5 fL; WBC 7.06 10^3/uL (4.4-10.8)
[2020-02-13 10:23] LABS: Antithrombin 3, Funct. 98 % (85-125)
[2020-02-13 15:34] LABS: ANA Interpretation Negative (Negative)
[2020-02-14 17:50] LABS: Dilute Russell Viper Venom 38.8 secs (27.2-36.9); LA Cascade Summary (See Note); Silica Clotting Time 41.1 secs (30.2-48.4)
[2020-02-18 16:40] LABS: Factor V Leiden(R506Q) Mut Negative (Negative); Prothrombin G20210A Mutation Negative (Negative)
[2020-02-19 16:33] LABS: MTHFR A1298C Mutation Analysis Heterozygous (Negative); Methylenetetrahydrofol Reduc M Negative (Negative)
== END 2020-02-12 01:52 ==
PROVIDERS: PCP Nurse Practitioner Family; Visit Provider Obstetrics & Gynecology
DX: N96 Recurrent pregnancy loss (principal)
CPT/HCPCS: 36415; 81240; 81241; 81291; 85300; 87116; 85025; 86038

== ENCOUNTER 2020-02-12 03:51 | Emergency (ER) | payer OTHER, MEDICAID, SELFPAY ==
[2020-02-12 03:54] VITALS: BP 167/93; PULSE 71; RESP 16; TEMP 36.5; O2SAT 100
--- NOTE | 2020-02-12 04:00 | DI.CT_ITS ---
EXAM: CT ABDOMEN PELVIS CTA CLINICAL HISTORY: middle abdominal pain,mesenteric ischemia TECHNIQUE: Imaging Protocol: Axial CT angiography was performed with multi-slice acquisition and m ulti-planar and/or 3D reconstructions. CONTRAST MATERIAL: Intravenous: Omnipaque 350 Contrast volume:structured 100 cc Oral: no COMPARISON: No exams were available for comparison FINDINGS: Vascular Structures: Celiac [place]/SMA: No evidence of stenosis. Renal Arteries: No evidence of stenosis. Aorta: No aneurysm. No dissection. Pelvis: Iliac Arteries: No evidence of stenosis. Common Femoral Arteries: No evidence of stenosis. Soft Tissues: Lung bases:Normal. Liver: Normal density. No measurable mass. Gallbladder and biliary tract: No radiodense calculus or dilation. Pancreas: Normal density, no abnormal calcifications or inflammatory process. Spleen: Normal. Kidneys: Normal size, contour and axis. No radiodense stones or obstructive uropathy. No masses seen. Adrenal glands: No masses seen. Bladder: Symmetric distention, no gross wall thickening. Bowel: No obstruction or bowel wall thickening. No evidence of mesenteric ischemia. Peritoneal cavity: No ascites, collection or mesenteric inflammatory response. Bones: Within normal limits. Lymph nodes: Within normal limits. Reproductive: The uterus is enlarged and shows multiple fibroids. There are a few hypervascular area s which may represent increased perfusion to the fibroids. There is an area near the fundus with a l arge amount of vascularity which may communicate with the endometrium. Further evaluation with pelvi c ultrasound is recommended. IMPRESSION: No evidence of mesenteric ischemia or vascular occlusion or dissection. Enlarged uterus with fibroids. Hypervascular area in the uterus could represent active extravasation . Pelvic ultrasound is recommended for further evaluation. RADIATION DOSE DELIVERED: 1,583.54mGy.cm Total DLP DATA REPOSITORY: All CT scans at this facility are submitted to the National Radiology Data Registry (NRDR) Dose Index Registry (DIR) with the [employer] (ACR). RADIATION OPTIMIZATION: All CT scans at this facility use at least one of these dose optimization te chniques: automated exposure control; mA and/or kV adjustment per patient size (includes targeted exa ms where dose is matched to clinical indication); or iterative reconstruction.
--- NOTE | 2020-02-12 04:00 | ED.GENADUL_ITS ---
Discharge Plan Disposition Patient Disposition: HOME Condition: Stable Discharge Details Clinical Impression: Abdominal pain Primary Care Provider: Jcarlos Mirza ED Provider: Antonio Díaz Home Meds and New Rx's Prescriptions: Continued vit-iron fum-folic ac [ Vitamin with Minerals] 28 mg iron- 800 mcg tablet 1 tab PO DAILY RF: 0 acetaminophen [Tylenol] 325 mg tablet 325 - 650 mg PO Q4H PRNRF: 0 labetalol 100 mg tablet 100 mg PO BID Qty: 60 RF: 1 sumatriptan succinate 100 mg tablet 100 mg PO DAILY PRNRF: 0 hydroxyzine HCl 25 mg tablet 50 mg PO HS PRNRF: 0 Discharge Instructions Additional Instructions: your blood work did not show any concerning findings. The Cat scan showed mild thickening of the uterine wall. There was some increased vascularity in the uterine fundus that will need a follow up ultrasoud Call Dr. Zepeda's office today to arrange for an ultrasound if you have severe worsening pain, fevers or feel more ill return to the emergency department Referrals: Dao Zepeda MD [ NON-[facility] STAFF PHYSICIAN] - Medical Decision Making 39 yo female with hx of miscarriage that delivered in the hospital 2 weeks ago, prior hernia repair in the past, comes in with pain since the miscarriage but increased over the past 2 days. She states she has a constant pain but does get waves of severe pain. Denies vomit, no vaginal bleeding or d/c, no chest pain/pressure or dyspnea and no fevers. She has mid and middle left abdominal pain without distention and normal bowel sounds. Denies alcohol, drug use or smo martha. Given increased pain will obtain lab work and imaging to evaluate for entities such as sbo, pancreatitis, hernia among other pathologies labs unremarkable and ct showed findings documented below, no sbo or hernia. Pt remains stable, discussed with obgyn Dr. Zepeda who will arrange for her to get an u/s as an outpatient. Discussed findings with pt and she understands importance of f/u with obyn and will return if any worsening or new symptoms Differential Diagnosis Differential Diagnosis: sbo, hernia, pancreatitis Medical Records Medical records reviewed: Yes I reviewed the patient's medical records. Imaging Data Radiologic Study: Attestation: I personally reviewed and interpreted this imaging study as follows: Imaging: CT Scan Radiologist's impression: IMPRESSION: Mild endometrial thickening as described. Increased vascularity versus small active area of extravasation in the uterine fundus/fundal endometrium. Consider further evaluation with pelvic ultrasound to assess for retained products of conception Lab Data Lab results reviewed: Yes I reviewed the patient's lab results. HPI General Mode of arrival: ambulatory . Date/Time Provider Initiated Documentation: 02/12/20 03:51 . Limitations to Documentation: no limitations . Information obtained by: patient . History of Present Illness 39 year old F presents to the emergency department with the chief complaint of abdominal pain, described as moderate, and it has been other (comes in waves). No relieving factors improve symptom(s), No exacerbating factors reported . Patient did receive the following treatments prior to arrival, none Related Data Home Medications Medication Instructions Recorded Confirmed vitamin-ferrous fumarate 1 tab PO DAILY 05/28/19 02/12/20 28 mg iron-folic acid 800 mcg tablet acetaminophen 325 mg tablet 325 - 650 mg PO Q4H PRN tab-cap 12/28/19 02/12/20 labetalol 100 mg tablet 100 mg PO BID #60 tab 01/24/20 02/12/20 hydroxyzine HCl 50 mg PO HS PRN 02/12/20 02/12/20 sumatriptan succinate 100 mg PO DAILY PRN 02/12/20 02/12/20 Previous Rx's Medication Instructions Recorded labetalol 100 mg tablet 100 mg PO BID #60 tab 01/24/20 Allergies Allergy/AdvReac Type Severity Reaction Status Date / Time ENVIRONMENTAL Allergy Mild Uncoded 02/12/20 04:19 General Stated Complaint: Abd Prob JANN: 3 Review of Systems All systems reviewed & are unremarkable except as noted in HPI and below Constitutional Constitutional: Denies chills, Denies fever(s) and Denies weakness Cardiovascular Cardiovascular: Denies chest pain and Denies dyspnea Respiratory Respiratory: Denies cough and Denies dyspnea Gastrointestinal Gastrointestinal: Denies abdominal pain, Denies nausea and Denies vomiting Musculoskeletal Musculoskeletal: Denies joint swelling Neurologic Neurologic: Denies weakness Psychiatric Psychiatric: Denies depression Endocrine Endocrine: Denies heat intolerance [facility] Medical History (Updated 02/12/20 @ 05:12 by Antonio Díaz MD) Asthma Complex cyst of left ovary noted 04/2014. 3.6cm. Unchanged in size or appearance 08/07/14. Pt declines Endometriosis Onset of sx 19yo. 1999 2006 at time of diagnostic laparoscopy. Rx with DepoLupron x6mo. 2007 breastfed until 2008 2010 breastfed until 2011 NFP since then. OCPs do not agree with pt. Endometriosis determined by laparoscopy Hypertension affecting , antepartum SI joint discomfort With previous pregnancies. Referred to PT 07/01/15. Surgical History Diagnostic Laproscopy (~2006) Dr Higgins stage 4 endometriosis Hernia Repair, Incisional (02/03/16) Family History Sister Endometriosis s/p EDNA/BSO @ 32yo Mother Essential hypertension Personal history of malignant neoplasm basal cell skin cancer Father Diabetes Elevated Hgb A1C Sister Cerebral aneurysm Sister No problems noted. Sister No problems noted. Social History Smoking/Tobacco Use Status: Never Alcohol Intake: never Drug use: Never Substance use type: does not use Current gender identity: female Seatbelt use: always Do you feel safe at home: Yes Do you feel safe in your relationship?: Yes History History 5 Para 3 Hx # Term Pregnancies 3 Multiple births 0 Hx # Pregnancies 0 Ectopic pregnancies 0 AB induced 0 Hx Number of Living Children 3 AB spontaneous 2 Past Pregnancies Del. Date GA/Weeks # Outcome Route Wgt Sex Labor Lgth Anesthes ia Location [facility] 05/15/08 38 No Successful vaginal 3997.283 g Male 18 hr [facility]. 04/04/11 40 No Successful vaginal 3968.933 g Female 8 hrs [facility] w/ hemorrhage 10/25/15 37 No Successful vaginal 3401.943 g Female 24 hr anea 03/21/19 8 06/18/19 6 Unsuccessful Delivery Date: 05/15/08 probable pre-eclampsia w/o mgso4. [facility] Delivery Date: 04/04/11 pt denies transfusion ebl? went home just over 24 hrs delivery. ? if pph. G[facility]RETT [facility]O Delivery Date: 10/25/15 iol for pre-eclampsia w/ mgso4. and hydralazine. [facility]RETT [facility]O Delivery Date: 03/21/19 Pt had a miscarriage at home on 03/21/19. Pt in today for her Kelly Cohen LPN,Elida Delivery Date: 06/18/19 SAB 06/18/19 at 6.4 weeks gestation, Dorothy Castillo MD Exam Const General: no acute distress Orientation: alert HENMT Head: normal to inspection Ears: external ears normal General nose exam: external nose normal Mouth: moist mucous membranes Eyes General: appearance normal, both eyes and all related structures Neck Neck: normal visual inspection Resp Effort & Inspection: normal respiratory effort and able to speak in complete sentences Cardio Rate: regular rate GI Palpation: soft Skin General skin exam: no rashes or lesions noted Neuro General: patient alert and patient oriented x3 Extrem General: normal to inspection Psych Mental Status: mental status grossly normal Course Vital Signs Vital signs: Vital Signs Temperature 36.5 C 02/12/20 03:54 Pulse 71 02/12/20 03:54 Respiratory Rate 16 02/12/20 03:54 Blood Pressure 167/93 H 02/12/20 03:54 Pulse Oximetry 100 02/12/20 03:54 Temperature 36.5 C 02/12/20 03:54 Temperature Source Skin 02/12/20 03:54 Pulse 71 02/12/20 03:54 Respiratory Rate 16 02/12/20 03:54 Respiratory Effort Non-Labored 02/12/20 03:57 Blood Pressure 167/93 H 02/12/20 03:54 Blood Pressure Position Sitting 02/12/20 03:54 Pulse Oximetry 100 02/12/20 03:54 Oxygen Delivery Method Room Air 02/12/20 03:54 Oxygen Flow Rate 0 02/12/20 03:54
[2020-02-12] MEDS: Normal Saline 1,000 ML 1000 ML IV (04:12)
[2020-02-12 04:20] LABS: Lactate 0.7 mmol/L (0.6-1.4)
[2020-02-12 04:23] LABS: Abs Immature Grans 0.02 10^3/uL (0.0-0.06); Absolute Basophil Count 0.06 10^3/uL (0.0-0.2); Absolute Eosinophil Count 0.35 10^3/uL (0.0-0.7); Absolute Lymphocyte Count 2.47 10^3/uL (1.2-3.4); Absolute Monocyte Count 0.71 10^3/uL (0.1-0.8); Absolute Neutrophil Count 3.89 10^3/uL (1.2-6.7); Basophils % 0.8; Eosinophils % 4.7; HCT 40.6 % (36.0-46.0); HGB 12.9 g/dL (11.2-15.7); Immature Grans % 0.3; Lymphocytes % 32.9; MCH 28.4 pg (27.0-33.0); MCHC 31.8 % (32.0-36.0); MCV 89.2 fL (80-95); MPV 9.8 fL (8.0-11.0); Monocytes % 9.5; Neutrophils % 51.8; Nucleated RBC 0 %; Platelet Count 317 10^3/uL (130-400); RBC 4.55 10^6/uL (3.93-5.22); RDW 14.5 % (11.7-14.6); RDW-SD 46.4 fL
[2020-02-12 04:32] VITALS: BP 145/62
[2020-02-12 04:32] LABS: Bilirubin Negative (Negative); Blood Negative (Negative); Clarity Clear (Clear); Glucose Negative (Negative); Ketones Negative (Negative); Leukocyte Esterase Negative (Negative); Nitrite Negative (Negative); Specific Gravity >= 1.030 (1.005-1.025); Urobilinogen 0.2 EU/dL (Up TO 0.2)
[2020-02-12] MEDS: Omnipaque 350 MG/ML 100 ML BTL IJ (04:34)
[2020-02-12] MEDS: Normal Saline - Diluent 50 ML VIAL IV (04:35)
[2020-02-12] MEDS: Normal Saline Flush 10 ML SYR IVP (04:35)
[2020-02-12 04:36] LABS: PTT Activated 25.6 sec (21.0-31.4); Prothrombin Time 9.9 sec (9.3-11.0)
[2020-02-12 04:39] LABS: ALT 15 U/L (14-59); AST 14 U/L (15-37); Albumin 4.3 g/dL (3.4-5.0); Alkaline Phosphatase 118 U/L (46-116); BUN 12 mg/dL (7-18); Bilirubin, Direct 0.05 mg/dL (0.00-0.20); Bilirubin, Total 0.3 mg/dL (0.2-1.0); CREATININE 0.84 mg/dL (0.55-1.02); Calcium 9.5 mg/dL (8.5-10.1); Chloride 103 mmol/L (98-107); Glucose 102 mg/dL (74-106); Lipase 65 U/L (73-393); Magnesium 1.9 mg/dL (1.8-2.4); Potassium 3.7 mmol/L (3.5-5.1); Sodium 141 mmol/L (136-145); Total Protein 7.9 g/dL (6.4-8.2)
--- NOTE | 2020-02-12 04:59 | DI.VRAD_ITS ---
PROCEDURE INFORMATION: Exam: CT Angiography Abdomen and Pelvis With Contrast Exam date and time: 02/12/2020 4:05 AM Age: 39 years old Clinical indication: Periumbilical; Prior surgery; Surgery date: 6+ months; Surgery type: Hernia repair 2015; Patient HX: Mid abdominal pain more to the left of the umbilicus , 2 weeks S/P misscarriage; Additional info: HX of endometriosis TECHNIQUE: Imaging protocol: Computed tomographic angiography of the abdomen and pelvis with intravenous contrast material. 3D rendering (Not supervised by radiologist): MIP and/or 3D reconstructed images were created by the technologist. Radiation optimization: All CT scans at this facility use at least one of these dose optimization techniques: automated exposure control; mA and/or kV adjustment per patient size (includes targeted exams where dose is matched to clinical indication); or iterative reconstruction. Contrast material: OMNIPAQUE 350; Contrast volume: 100 ml; Contrast route: INTRAVENOUS (IV); COMPARISON: CT ABD PELVIS WITH CONTRAST 05/14/2014 8:26 AM FINDINGS: Aorta: No aortic aneurysm. No aortic dissection. Celiac trunk and mesenteric arteries: No occlusion or significant stenosis. Renal arteries: No occlusion or significant stenosis. Right iliac arteries: No occlusion or significant stenosis. Left iliac arteries: No occlusion or significant stenosis. Liver: No mass. Gallbladder and bile ducts: Unremarkable. No calcified stones. No ductal dilation. Pancreas: Unremarkable. No mass. No ductal dilation. Spleen: Unremarkable. No splenomegaly. Adrenals: Unremarkable. No mass. Kidneys and ureters: Unremarkable. No solid mass. No hydronephrosis. Stomach and bowel: Unremarkable. No obstruction. No mucosal thickening. Appendix: No evidence of appendicitis. Intraperitoneal space: Unremarkable. No free air. No significant fluid collection. Lymph nodes: Unremarkable. No enlarged lymph nodes. Urinary bladder: Unremarkable. No mass. Reproductive: Enlarged heterogeneous uterus with multiple fibroids. Thickened endometrium measuring 12 mm. Focal area of vascularity in the uterine fundus extending into the fundal portion of the endometrium Bones/joints: No acute fracture. No dislocation. Soft tissues: Unremarkable. IMPRESSION: Mild endometrial thickening as described. Increased vascularity versus small active area of extravasation in the uterine fundus/fundal endometrium. Consider further evaluation with pelvic ultrasound to assess for retained products of conception Dictated and Authenticated by: Cricket Woodward MD. Ordering:RAFAEL Alvarez MD
[2020-02-12 05:21] VITALS: BP 144/97; PULSE 80; RESP 16; O2SAT 100
== END 2020-02-12 05:20 | disposition home or self-care (01) ==
PROVIDERS: Emergency Provider Emergency Medicine; PCP Nurse Practitioner Family
DX: O75.4 Other complications of obstetric surgery and procedures (principal); R10.33 Periumbilical pain; R10.12 Left upper quadrant pain; R93.5 Abnormal findings on diagnostic imaging of other abdominal regions, including retroperitoneum; Y83.8 Other surgical procedures as the cause of abnormal reaction of the patient, or of later complication, without mention of misadventure at the time of the procedure
CPT/HCPCS: 36415; 80053; 83690; 96360; 99285; 74174; 81003; 82248; 83605; 83735; 85025; 85610; 85730; J3490

== ENCOUNTER 2020-04-22 03:26 | Outpatient (CLI) | payer OTHER, MEDICAID, SELFPAY ==
[2020-04-23 11:10] LABS: Protein C, Functional 136 % (71-199); Protein S, Functional 92 % (64-147)
[2020-04-23 12:19] LABS: IgA 172 mg/dL (85-499); Interpretation (See Note); Tissue Transglutaminase IgA <1.2 U/mL (<4.0)
[2020-04-28 11:31] LABS: Phospholipid Ab, IgG <9.4 GPL; Phospholipid Ab, IgM 10.4 MPL
== END 2020-04-22 03:46 ==
PROVIDERS: Obstetrics & Gynecology; PCP Nurse Practitioner Family; Visit Provider Nurse Practitioner Family
DX: M25.59 Pain in other specified joint (principal)
CPT/HCPCS: 36415; 82784; 83516; 85306; 86147; 85303

== ENCOUNTER 2020-05-01 01:03 | Outpatient (CLI) | payer OTHER, MEDICAID, SELFPAY ==
--- NOTE | 2020-05-01 13:30 | DI.US_ITS ---
APPROVED REPORT EXAM: Comprehensive 2D, Doppler, and color-flow Echocardiogram Patient Location: Out-Patient Special Agent Secret Service: Adriane Baez RDCS (AE) Indications: Systolic heart murmur Other Information Study Quality: Good Conclusion Left Ventricle : The left ventricle is normal size. The left ventricular systolic function is normal. The left ventricular ejection fraction is within the normal range. There is normal left ventricular wall thickness. There is normal LV segmental wall motion. The left ventricular diastolic function is normal. LVEF is 60%. Right Ventricle : The right ventricle is normal size. The right ventricular systolic function is norm al. Valves: There are no hemodynamically significant valvular lesions. Great Vessels : The aortic root is normal in size. The ascending aorta is normal in size. Aortic arch is not well visualized. IVC is normal in size and collapses >50% with inspiration. Please see remainder of study for further details. Wall motion Left Ventricle The left ventricle is normal size. The left ventricular systolic function is normal. The left ventric ular ejection fraction is within the normal range. There is normal left ventricular wall thickness. T here is normal LV segmental wall motion. The left ventricular diastolic function is normal. There is no ventricular septal defect visualized. LVEF is 60%. Right Ventricle The right ventricle is normal size. The right ventricular systolic function is normal. Atria The left atrium size is normal. The right atrium size is normal. The interatrial septum is intact wit h no evidence for an atrial septal defect. Aortic Valve The aortic valve is normal in structure. Aortic valve is trileaflet. There is no aortic valvular sten osis. No aortic regurgitation is present. Mitral Valve The mitral valve is normal in structure. No evidence of mitral valve stenosis. There is no mitral juan ve regurgitation noted. Tricuspid Valve The tricuspid valve is normal in structure. There is no tricuspid valve stenosis. Trace tricuspid reg urgitation. Unable to assess PA pressure. Pulmonic Valve The pulmonary valve is normal in structure. There is no pulmonic valvular stenosis. There is no pulmo ethan valvular regurgitation. Great Vessels The aortic root is normal in size. The ascending aorta is normal in size. Aortic arch is not well vis ualized. IVC is normal in size and collapses >50% with inspiration. Pericardium There is no pericardial effusion. 2D Dimensions IVSD d PLAX 0.82 cm F: 0.6-1.0 LV Vol A2C d MOD 77.2 mL LVPW d PLAX 0.89 cm F: 0.6 - 1.0 LV Vol A4C d MOD 84.7 mL LVID d PLAX 4.43 cm F: 3.8 - 5.2 LA vol/ BSA A2C s A-L 23.7 mL/m2 LVDs 2.90 cm F: 2.2 - 3.5 LA vol/ BSA A4C s A-L 24.0 mL/m2 Ao Root d 2.77 cm F: 2.7 - 3.3 LA Vol/ BSA Biplane s A-L 25.4 mL/m2 RA Area A4C 11.86 cm2 LA Area A4C s MOD 17.05 cm2 RA Vol/ BSA A4C s A-L 15.4 mL/m2 LA Area A2C s MOD 15.91 cm2 Ao Asc Diam d 2.87 cm F: 2.3 - 3.1 LV EF A4C MOD 57.1 % LV EF Teichholz 62.9 % LV EF A2C MOD 61.1 % LVEF (Michel's) 57.80 % F: 54 - 74 LV EF Biplane MOD 57.8 % LV Volume 62.33 mL F: 46 - 106 SV 47.49 mL LV Volume Index 32.29 mL/m2 F: 29 - 61 SV Index 24.56 mL/m2 LV Vol Biplane MOD 82.2 mL FS 33.80 % M-Mode TAPSE 2.42 cm (M/F) >1.7 LV Diastology MV E' medial 0.079 (>0.07 m/s) E/A Ratio 1.3 LV E/e MED 9.65 (<14) MV E Vmax 0.77 (0.4-1.3 m/s) MV E' lateral 0.155 (>0.1 m/s) MV A Vmax 0.60 (0.4-1.3 m/s) LV E/e LAT 4.95 (<14) MV E/A Ratio 1.24 MV E/E' medial 9.70 MV E/E' lateral 4.96 Aortic Valve LVOT Area 2.86 cm2 AoV Area Vmax 2.41 cm2 LVOT Vmax 1.13 m/s AoV Area/ BSA (Vmax) 1.25 cm2/m2 LVOT Mean Edwin. 0.74 m/s GIRISH Mean Edwin. 2.27 cm2 LVOT Peak Grad 5.1 mmHg GIRISH Mean Edwin. Index 1.18 cm2/m2 LVOT Mean Grad 2.6 mmHg LVOT VTI 0.225 m LVOT Diam s 1.90 cm AoV Vmax 1.34 m/s Velocity Ratio 0.84 AoV Mean Edwin. 0.93 m/s AoV Peak Grad 7.2 mmHg LVOT SV 64.38 mL AoV Mean Grad 4.0 mmHg AoV VTI 0.250 m AoV Area VTI 2.57 cm2 AoV Area/ BSA (VTI) 1.33 cm/m2 Mitral Valve MV DT 236 (160-240 msec) MV PHT 68 msec MV Area PHT 3.21 cm2 MV VTI 0.204 m MV Area VTI 3.15 (4.0-6.0 cm2) Pulmonary Valve PV Vmax 1.34 (0.5-1.5 m/s) RVOT Peak Gr. 3.77 mmHg PV Peak Grad 7.1 mmHg RVOT Mean Gr. 1.65 mmHg PV Mean Grad 3.8 mmHg RVOT VTI 0.177 m PV VTI 0.242 m RVOT Vmax 0.97 m/s
== END 2020-05-01 01:23 ==
PROVIDERS: PCP Nurse Practitioner Family; Visit Provider Nurse Practitioner Family
DX: R01.1 Cardiac murmur, unspecified (principal)
CPT/HCPCS: 93306

== ENCOUNTER 2020-05-16 01:37 | Outpatient (REF) | payer OTHER, MEDICAID, SELFPAY ==
[2020-05-18 10:22] LABS: COVID-19 RT-PCR Result NEGATIVE (Negative)
== END 2020-05-16 01:57 ==
LOC: LBO 01:37
PROVIDERS: PCP Nurse Practitioner Family; Visit Provider Nurse Practitioner Family
DX: Z11.52 Encounter for screening for COVID-19 (principal)
CPT/HCPCS: U0003

== ENCOUNTER 2020-05-16 03:25 | Outpatient (CLI) | payer OTHER, MEDICAID, SELFPAY ==
--- NOTE | 2020-05-16 | DI.MRI_ITS ---
CLINICAL HISTORY: NEW DAILY PERSISTENT HEADACHES, G44.52,FAMILY H/O BRAIN ANEURYSM,Z82.0. TECHNIQUE: Multiplanar multisequence MRA of the brain was performed. COMPARISON: Comparison examination is 04/08/2016. FINDINGS: Carotid Arteries: No aneurysm, occlusion or significant stenosis. Anterior Cerebral Arteries: Right: No aneurysm, occlusion or significant stenosis. Left: No aneurysm, occlusion or significant stenosis. Middle Cerebral Arteries: Right: No aneurysm, occlusion or significant stenosis. Left: No aneurysm, occlusion or significant stenosis. Posterior Cerebral Arteries: Right: No aneurysm, occlusion or significant stenosis. Left: No aneurysm, occlusion or significant stenosis. Vertebral Arteries: Right: No aneurysm, occlusion or significant stenosis. Left: No aneurysm, occlusion or significant stenosis. Basilar Artery: No aneurysm, occlusion or significant stenosis. IMPRESSION: Normal MRA examination of the [place] of [place]. DATA REPOSITORY:
--- NOTE | 2020-05-16 | DI.MRI_ITS ---
EXAM: MR BRAIN WO CLINICAL HISTORY: NEW DAILY PERSISTENT HEADACHE,G44.52,FAMILY H/O BRAIN ANEURYSM,Z82.0 TECHNIQUE: Multiplanar multisequence MRI of the brain was performed. COMPARISON: MR MRI IAC W/WO CONTRAST from 04/08/2016 FINDINGS: VENTRICLES AND EXTRA AXIAL SPACES: Normal in size and morphology for the patient's age. MIDLINE SHIFT: None. CEREBRAL PARENCHYMA: No focus of restricted diffusion to suggest acute infarct. No space-occupying le jose alberto identified. HEMORRHAGE: None. BRAINSTEM/CEREBELLUM: Normal. CALVARIUM: Normal. VISUALIZED PARANASAL SINUSES/MASTOIDS:There is mild mucosal thickening in the left maxillary sinus. The remaining visualized paranasal sinuses are clear. [place] OF [place]: Normal flow void. PITUITARY GLAND: Unremarkable. OTHER FINDINGS: None. IMPRESSION: Unremarkable MRI of the brain except for mild left maxillary sinusitis.. DATA REPOSITORY:
== END 2020-05-16 03:45 ==
PROVIDERS: PCP Nurse Practitioner Family; Visit Provider Nurse Practitioner Family
DX: G44.52 New daily persistent headache (NDPH) (principal); Z82.0 Family history of epilepsy and other diseases of the nervous system
CPT/HCPCS: 70544; 70551

== ENCOUNTER 2021-01-02 16:52 | Outpatient (REF) | payer OTHER, SELFPAY ==
[2021-01-02 19:53] LABS: Source Nasal/Nares
[2021-01-02 20:23] LABS: COVID-19 PCR Negative (Negative)
== END 2021-01-02 16:53 | disposition home or self-care (01) ==
LOC: LBN 16:52
PROVIDERS: PCP Nurse Practitioner Family; Visit Provider Student in an Organized Health Care Education/Training Program
DX: Z20.822 Contact with and (suspected) exposure to COVID-19 (principal)
CPT/HCPCS: 87635

== ENCOUNTER 2021-06-26 00:50 | Outpatient (CLI) | payer OTHER, SELFPAY ==
--- NOTE | 2021-06-26 09:50 | DI.RAD_ITS ---
Exam(s) RF BARIUM SWALLOW EXAM: RF BARIUM SWALLOW CLINICAL HISTORY: DYSPHAGIA, R13.10 TECHNIQUE: 2D and realtime digital imaging was performed. CONTRAST MATERIAL: Oral barium contrast was administered. COMPARISON: CR CHEST 2 VIEWS PA,LAT from 06/04/2010 FINDINGS: CHEST X-RAY: The heart and pulmonary vasculature are within normal limits. The lungs are clear. No pl eural effusion or pneumothorax is present. The bones are within normal limits for the patient's age. ESOPHAGRAM: The esophagus is patent with no evidence for erosions, fold thickening, strictures, or ma sses. With regards to the motility, there is a normal primary stripping wave. No tertiary contraction s were noted. There is no gastroesophageal reflux. There is a small hiatal hernia present. IMPRESSION: Small hiatal hernia. Otherwise unremarkable esophagram. RADIATION DOSE DELIVERED: kathleen Lamb=14.1 mGy
== END 2021-06-26 01:10 ==
PROVIDERS: PCP Nurse Practitioner Family; Visit Provider Physician Assistant
DX: R13.10 Dysphagia, unspecified (principal); K44.9 Diaphragmatic hernia without obstruction or gangrene
CPT/HCPCS: 74221

== ENCOUNTER 2021-08-24 02:20 | Outpatient (CLI) | payer OTHER, SELFPAY ==
[2021-08-24 15:12] LABS: Abs Immature Grans 0.03 10^3/uL (0.0-0.06); Absolute Basophil Count 0.04 10^3/uL (0.0-0.2); Absolute Eosinophil Count 0.23 10^3/uL (0.0-0.7); Absolute Lymphocyte Count 1.92 10^3/uL (1.2-3.4); Absolute Monocyte Count 0.88 10^3/uL (0.1-0.8); Absolute Neutrophil Count 5.43 10^3/uL (1.2-6.7); Basophils % 0.5; Eosinophils % 2.7; HCT 36.1 % (36.0-46.0); HGB 11.8 g/dL (11.2-15.7); Immature Grans % 0.4; Lymphocytes % 22.5; MCHC 32.7 % (32.0-36.0); MCV 86 fL (80-95); MPV 9.5 fL (8.0-11.0); Monocytes % 10.3; Neutrophils % 63.6; Platelet Count 280 10^3/uL (130-400); RBC 4.21 10^6/uL (3.93-5.22); RDW 14.6 % (11.7-14.6); RDW-SD 45.2 fL; WBC 8.53 10^3/uL (4.4-10.8)
[2021-08-24 16:29] LABS: TSH (W/Ref FT4) 1.24 uIU/mL (0.36-3.74)
[2021-08-25 10:18] LABS: Hepatitis B Surface Ag Negative (Negative)
[2021-08-25 10:41] LABS: HIV-1/2 Ag & Ab Screen Negative (Negative)
[2021-08-25 10:52] LABS: Hepatitis C Ab w Rflx HCV PCR Negative (Negative)
[2021-08-25 11:49] LABS: Varicella IgG Antibody Positive (See Note)
[2021-08-25 12:10] LABS: Rubella IgG Ab (UVM) Positive (See Note)
[2021-08-25 21:14] LABS: Syphilis IgG w/Reflex Nonreactive (Nonreactive)
== END 2021-08-24 02:21 | disposition home or self-care (01) ==
LOC: LBO 02:20
PROVIDERS: PCP Nurse Practitioner Family; Visit Provider Advanced Practice Midwife
DX: Z34.91 Encounter for supervision of normal pregnancy, unspecified, first trimester (principal); Z3A.11 11 weeks gestation of pregnancy
CPT/HCPCS: 36415; 86787; 86803; 86850; 86900; 86901; 87340; 87389; 84443; 85025; 86762; 86780

== ENCOUNTER 2021-08-24 14:50 | Outpatient (REF) | payer OTHER, MEDICAID, SELFPAY ==
--- NOTE | 2021-08-24 14:20 | PAPFT_PTH ---
PATIENT: Charla Ellison LOC: [facility] U#:[id number] AGE/SX: 41/F ROOM: RE08/24/[address]: Leidy Molina CNM : 1980 BED: DIS: 08/24/2021 SPEC #: [id number] RECD: 08/24/21 17:56 STATUS: NIVIA REDivine #: [id number] BONNIE: 08/24/21 14:[address]: Leidy Molina DEPT: [facility] Cytology RECD BY: Rebecca Pedraza ENTERED: 08/24/21 17:57 SP TYPE: PAPFT OTHR DR: Jcarlos Mirza Tissues: 1 - CX/ENDOCX FOR PAP SMEARS Procedures: PAP THIN PREP/UVM Screening HPV DNA PROBE Comments: [id number] (CHLAMYDIA/GC)
[2021-08-24 18:28] LABS: COMMENT (LAB VIEW ONLY) 20.62 mg/dL; PROTEIN < 6.0 mg/dL
[2021-08-24 18:30] LABS: *AMPHETAMINES SCREEN URINE Negative (Negative); *BARBITURATES SCREEN URINE Negative (Negative); *BENZODIAZEPINES SCREEN URINE Negative (Negative); Cannabinoids THC Negative (Negative); Cocaine Screen,Urine Negative (Negative); METHADONE URINE SCREEN Negative (Negative); OPIATES URINE SCREEN Negative (Negative)
[2021-08-24 18:35] LABS: Tricyclic Antidepressants Negative (Negative)
[2021-08-26 15:43] LABS: Chlamydia Result Negative (Negative); GC Result Negative (Negative)
[2021-08-29 11:52] LABS: Buprenorphine Negative ng/mL (Cutoff: 5.0); Norbuprenorphine Negative ng/mL (Cutoff: 2.5)
== END 2021-08-24 14:51 | disposition home or self-care (01) ==
LOC: LBN 14:50
PROVIDERS: PCP Nurse Practitioner Family; Visit Provider Advanced Practice Midwife
DX: O09.521 Supervision of elderly multigravida, first trimester (principal); Z3A.11 11 weeks gestation of pregnancy; Z12.4 Encounter for screening for malignant neoplasm of cervix
CPT/HCPCS: 80307; 87491; 87591; 88142; 82565; 84156; 87086; 87624

== ENCOUNTER 2021-09-02 01:42 | Outpatient (CLI) | payer OTHER, MEDICAID, SELFPAY ==
[2021-09-02 08:36] LABS: ALT 46 U/L (14-59); AST 27 U/L (15-37); Albumin 3.7 g/dL (3.4-5.0); Alkaline Phosphatase 122 U/L (46-116); BUN 6 mg/dL (7-18); Bilirubin, Total 0.2 mg/dL (0.2-1.0); CREATININE 0.7 mg/dL (0.55-1.02); Calcium 8.6 mg/dL (8.5-10.1); Chloride 106 mmol/L (98-107); Glucose 95 mg/dL (74-106); Potassium 3.8 mmol/L (3.5-5.1); Sodium 138 mmol/L (136-145); Total Protein 6.8 g/dL (6.4-8.2)
[2021-09-02 09:39] LABS: Glucose 1 Hour 155 mg/dL
[2021-09-02 11:38] LABS: Glucose 3 Hour 64 mg/dL
== END 2021-09-02 01:43 | disposition home or self-care (01) ==
LOC: LBO 01:42
PROVIDERS: PCP Nurse Practitioner Family; Visit Provider Advanced Practice Midwife
DX: O10.011 Pre-existing essential hypertension complicating pregnancy, first trimester (principal); O09.522 Supervision of elderly multigravida, second trimester; Z3A.12 12 weeks gestation of pregnancy
CPT/HCPCS: 36415; 80053; 82951

== ENCOUNTER 2021-11-23 16:21 | Outpatient (REF) | payer OTHER, MEDICAID, SELFPAY | END 2021-11-23 16:22 | disposition home or self-care (01) | LOC: LBN 16:21 | PROVIDERS: PCP Nurse Practitioner Family; Visit Provider Obstetrics & Gynecology | DX: N89.8 Other specified noninflammatory disorders of vagina (principal) | CPT/HCPCS: 87480; 87510; 87660 ==

== ENCOUNTER 2021-12-17 17:12 | Outpatient (REF) | payer OTHER, MEDICAID, SELFPAY | END 2021-12-17 17:13 | disposition home or self-care (01) | LOC: LBN 17:12 | PROVIDERS: PCP Nurse Practitioner Family; Visit Provider Advanced Practice Midwife | DX: O26.892 Other specified pregnancy related conditions, second trimester (principal); R10.9 Unspecified abdominal pain | CPT/HCPCS: 87480; 87510; 87660 ==

== ENCOUNTER 2021-12-18 01:22 | Outpatient (CLI) | payer OTHER, MEDICAID, SELFPAY ==
[2021-12-18 07:32] LABS: HCT 32.2 % (36.0-46.0); HGB 10.7 g/dL (11.2-15.7); MCH 30.2 pg (27.0-33.0); MCHC 33.2 % (32.0-36.0); MCV 91 fL (80-95); MPV 9.4 fL (8.0-11.0); Platelet Count 264 10^3/uL (130-400); RBC 3.54 10^6/uL (3.93-5.22); RDW-SD 42.6 fL; WBC 11.89 10^3/uL (4.4-10.8)
[2021-12-18 09:22] LABS: Glucose 1 Hour 227 mg/dL
[2021-12-18 09:47] LABS: GTT Comment See Comments
== END 2021-12-18 01:23 | disposition home or self-care (01) ==
LOC: LBO 01:22
PROVIDERS: Obstetrics & Gynecology; PCP Nurse Practitioner Family; Visit Provider Advanced Practice Midwife
DX: O09.522 Supervision of elderly multigravida, second trimester (principal); O24.410 Gestational diabetes mellitus in pregnancy, diet controlled; O99.012 Anemia complicating pregnancy, second trimester; Z67.91 Unspecified blood type, Rh negative; Z3A.27 27 weeks gestation of pregnancy
CPT/HCPCS: 36415; 85027; 86850; 90384; 82951

== ENCOUNTER → 2021-12-21 02:32 | Outpatient (CLI) | payer OTHER, MEDICAID, SELFPAY ==
--- NOTE | 2021-12-21 07:00 | DI.US_ITS ---
Exam(s) US OB ANDI WEIGHT EXAM: US OB ANDI WEIGHT CLINICAL HISTORY: chronic hypertension, , I10, Z34.90. TECHNIQUE: Transabdominal obstetrical ultrasound performed. COMPARISON: US US PELVIS TRANSVAGINAL from 02/15/2020 FINDINGS: Transabdominal obstetrical ultrasound performed. FINDINGS: Number of fetuses: One. position: Breech Placental location: There is a fundal placental location. No evidence of previa. BIOMETRIC DATA: BPD: 74 mm = 29 weeks 5 days HC: 267 mm = 29 weeks 3 days AC: 250 mm = 29 weeks 1 day FL: 56 mm = 29 weeks 2 days EFW: 1364 grms 84% Composite Age: 29 weeks 3 days EDC: 03/05/2022 Heart Rate: 144BPM Amniotic fluid index: 13.1 cm. Visually, amount of fluid is within normal limits. Other: There are multiple uterine fibroids present. The largest is in the fundal uterus and measures 4.7 x 5.4 x 2.5 cm. There is an anterior uterine fibroid measuring 4.5 x 5.1 x 2.7 cm. IMPRESSION: 1. Single live intrauterine gestation as above. 2. Estimated weight is 1364gms. This is the 84th percentile. 3. Amniotic fluid index is 13.1 cm. Visually within normal limits. 4. Multiple uterine fibroids. DATA REPOSITORY:
--- NOTE | 2021-12-31 14:20 | DIABASSESS_ITS ---
Date of service: 12/31/21 Time of Service: 14:20 Diabetes Note Reason for Visit: GDM NOTE: Met with Charla at [facility] today. She was dx with GDM at 28 weeks. ANDRAE: 03/15/22 fourth child. Has gained 27 lbs this , BMI >30 pre (199). Records provided indicates fasting sugars <95 mg/dl, and post prandial levels < 140 mg/dl in last 7 days. Meeting glycemic goals at this time with life style and diet. Provided meal plan education on how to follow lower carb, higher protein meal plan with emphasis on complex carbs, lean protein and healthy fats. Charla already prefers natural and healthful unprocessed foods. No follow up planned. Will follow up if blood sugars above target. Time Spent in Nutritional Counseling and Treatment: 20
== END ==
PROVIDERS: PCP Nurse Practitioner Family; Visit Provider Advanced Practice Midwife
DX: I10 Essential (primary) hypertension (principal); Z34.93 Encounter for supervision of normal pregnancy, unspecified, third trimester; D25.9 Leiomyoma of uterus, unspecified
CPT/HCPCS: 76816

== ENCOUNTER → 2022-01-26 01:18 | Outpatient (CLI) | payer OTHER, MEDICAID, SELFPAY ==
--- NOTE | 2022-01-26 06:45 | DI.US_ITS ---
Exam(s) US OB ANDI WEIGHT EXAM: US OB ANDI WEIGHT CLINICAL HISTORY: chronic hypertension,,i10. TECHNIQUE: Transabdominal obstetrical ultrasound was performed. COMPARISON: US US OB ANDI WEIGHT from 12/21/2021 FINDINGS: There is a single viable intrauterine gestation with cardiac activity identified-151 bpm The fetus is presently in cephalic position . Amniotic fluid: There is a normal amount of amniotic fluid with an ANDI of 18.43cm. Placental location: The placenta is fundal,with no evidence of placenta previa. UTERUS: Multiple anterior myometrial fibroids are again noted. The largest of these measures 4.6 x 2 .7 x 5.2 cm and is near the fundus level. Similar size to previous. There does not appear to have b een accelerated fibroid growth since the prior study. Dating parameters place this at approximately 34 weeks and 1 day gestational age, implying ANDRAE of March 08, 2022. BPD measures 33 weeks and 2 days HC measures 35 weeks and 3 days AC measures 34 weeks and 1 day FL measures 33 weeks and 3 days Estimated weight is 2321 gm-5 pounds, 2 ounces. Fetus is at the 67th percentile on the Hadlock scale. IMPRESSION:: Viable 3rd trimester gestation, as described above. Presently in cephalic position. Relatively stable appearance-size of the multiple anterior myometrial fibroids. The largest of these is again noted to be just below the fundus level. DATA REPOSITORY:
== END ==
PROVIDERS: Visit Provider Advanced Practice Midwife
DX: O10.013 Pre-existing essential hypertension complicating pregnancy, third trimester
CPT/HCPCS: 76816

== ENCOUNTER 2022-02-16 02:13 | Outpatient (RCR) | payer OTHER, MEDICAID, SELFPAY ==
[2022-02-08] MEDS: IRON SUCROSE COMPLEX 200 MG in Normal Saline 100 ML 440 MG IVPB (14:14)
[2022-02-08] MEDS: Normal Saline Flush 10 ML SYR IVP (14:14)
[2022-02-16] MEDS: Normal Saline Flush 10 ML SYR IVP (07:28)
[2022-02-16 07:42] LABS: HCT 32.9 % (36.0-46.0); HGB 11.2 g/dL (11.2-15.7)
== END 2022-02-22 23:59 | disposition home or self-care (01) ==
LOC: INF 02:13
PROVIDERS: Visit Provider Advanced Practice Midwife
DX: O99.013 Anemia complicating pregnancy, third trimester (principal)
CPT/HCPCS: 36415; 96365; 85014; 85018; J1756

== ENCOUNTER 2022-02-17 06:35 | Outpatient (CLI) | payer OTHER, MEDICAID, SELFPAY ==
[2022-02-17 09:05] VITALS: BP 142/72; PULSE 66; TEMP 36.8
[2022-02-17 09:11] VITALS: BP 142/72; PULSE 66
[2022-05-06 15:59] VITALS: BP 142/72; PULSE 66; TEMP 36.8
--- NOTE | 2022-05-06 15:59 | W.OBNST ---
Date of service: 02/17/22 Time of Service: 11:00 NST Evaluation Reason for NST Reasons for Nonstress Test: ADVANCED MATERNAL AGE Gestational Age Gestational Age in Weeks and Days: 37 Weeks and 3Days Test and Monitor Explained Test/Monitor Explained: Test Explained and Monitor Explained Vital Signs Blood Pressure: 142/72 Pulse: 66 Temperature: 98.2 F Urine Results Urine Protein: Negative Urine Ketones: Negative Urine Glucose: Negative Urine Blood: Negative NST Information Date on Monitor: 02/17/22 Time on Monitor: 09:00 Date off Monitor: 02/17/22 Time off Monitor: 09:24 Total Time on Monitor: 24 NST Interventions: PO Hydration NST Evaluation Patient States Movement: Present FHR Baseline: 130 Variability: Moderate 6-25 bpm Accelerations: 15x15 Decelerations: None NST Results: Reactive Note NST Note NST Reviewed and Verified by: Em Lopez
== END 2022-02-17 09:35 | disposition home or self-care (01) ==
LOC: BCD 06:36 → OBS 08:57
PROVIDERS: Visit Provider Obstetrics & Gynecology Gynecology
DX: O09.523 Supervision of elderly multigravida, third trimester (principal)
CPT/HCPCS: 59025

== ENCOUNTER → 2022-02-19 00:55 | Outpatient (CLI) | payer OTHER, MEDICAID, SELFPAY ==
--- NOTE | 2022-02-19 07:30 | DI.US_ITS ---
Exam(s) US OB ANDI WEIGHT EXAM: US OB ANDI WEIGHT CLINICAL HISTORY: uterine fibroids,gest diabetes,advanced maternal age,O34.10. TECHNIQUE: Transabdominal obstetrical ultrasound performed. COMPARISON: US US OB ANDI WEIGHT from 01/26/2022 FINDINGS: Number of fetuses: 1 position: CEPHALIC Placental location:There is a grade 2 fundal and posterior placenta. No evidence of previa. There a gain seen multiple anterior uterine fibroids. The largest measures 5.7 x 2.9 x 5.2 cm. It is locate d 5.5 cm from the placental tip. BIOMETRIC DATA: BPD: 9.08cm, 36weeks 6days HC: 33.45cm,38weeks 2days AC: 32.97cm,36weeks 6days FL: 7.18cm,36weeks 5days EFW:3,088.77g,6lb 12.92oz,65.8% Composite Age:37weeks 1day ANDRAE:03/11/2022 Heart Rate: 134bpm Amniotic fluid index:13.5. Visually, amount of fluid is within normal limits. IMPRESSION: 1. Single live intrauterine gestation as above. 2. Multiple uterine fibroids are again seen. 3. There has been normal interval growth. DATA REPOSITORY:
== END ==
PROVIDERS: Visit Provider Advanced Practice Midwife
DX: D25.9 Leiomyoma of uterus, unspecified (principal); O09.523 Supervision of elderly multigravida, third trimester; O24.419 Gestational diabetes mellitus in pregnancy, unspecified control; O34.13 Maternal care for benign tumor of corpus uteri, third trimester
CPT/HCPCS: 76816

== ENCOUNTER 2022-02-19 06:50 | Outpatient (CLI) | payer OTHER, MEDICAID, SELFPAY ==
[2022-02-19 13:33] VITALS: BP 141/83; PULSE 65; TEMP 36.6
[2022-02-19 13:41] VITALS: BP 141/83; PULSE 65
--- NOTE | 2022-02-19 14:24 | W.OBNST ---
Date of service: 02/19/22 Time of Service: 14:24 NST Evaluation Reason for NST Reasons for Nonstress Test: CHRONIC HYPERTENSION and ADVANCED MATERNAL AGE Gestational Age Gestational Age in Weeks and Days: 36 Weeks and 4Days Test and Monitor Explained Test/Monitor Explained: Test Explained, Monitor Explained and Patient Verbalized Understanding Vital Signs Blood Pressure: 141/83 Pulse: 65 Temperature: 97.9 F NST Information Date on Monitor: 02/19/22 Time on Monitor: 13:25 Date off Monitor: 02/19/22 Time off Monitor: 13:53 Total Time on Monitor: 28 NST Interventions: PO Hydration NST Evaluation Patient States Movement: Present FHR Baseline: 130 Variability: Moderate 6-25 bpm Accelerations: 15x15 Decelerations: None NST Results: Reactive Note NST Note Note: Category 1 strip. Reactive nonstress test. NST Reviewed and Verified by: Dorothy Gonsalez
[2022-02-19 14:25] VITALS: BP 141/83; PULSE 65; TEMP 36.6
== END 2022-02-19 13:54 | disposition home or self-care (01) ==
LOC: BCD 06:56 → OBS 13:28
PROVIDERS: Visit Provider Obstetrics & Gynecology
DX: O09.523 Supervision of elderly multigravida, third trimester (principal); O10.013 Pre-existing essential hypertension complicating pregnancy, third trimester; Z3A.36 36 weeks gestation of pregnancy
CPT/HCPCS: 59025

== ENCOUNTER 2022-02-19 15:25 | Outpatient (REF) | payer OTHER, MEDICAID, SELFPAY ==
[2022-02-19 17:00] LABS: *AMPHETAMINES SCREEN URINE Negative (Negative); *BARBITURATES SCREEN URINE Negative (Negative); *BENZODIAZEPINES SCREEN URINE Negative (Negative); Cannabinoids THC Negative (Negative); Cocaine Screen,Urine Negative (Negative); METHADONE URINE SCREEN Negative (Negative); OPIATES URINE SCREEN Negative (Negative)
[2022-02-19 17:02] LABS: Tricyclic Antidepressants Negative (Negative)
[2022-02-24 12:32] LABS: Buprenorphine Negative ng/mL (Cutoff: 5.0)
== END 2022-02-19 15:26 | disposition home or self-care (01) ==
LOC: LBN 15:25
PROVIDERS: Visit Provider Obstetrics & Gynecology
DX: Z34.93 Encounter for supervision of normal pregnancy, unspecified, third trimester (principal); R30.0 Dysuria
CPT/HCPCS: 80307; 80348; 87081; 87086

== ENCOUNTER 2022-02-22 10:20 | Outpatient (CLI) | payer OTHER, MEDICAID, SELFPAY ==
[2022-02-22 10:46] VITALS: BP 126/74; PULSE 75; TEMP 36.8
[2022-02-22 10:51] VITALS: BP 126/74; PULSE 75
[2022-02-22 11:02] VITALS: BP 126/74; PULSE 75; TEMP 36.8
--- NOTE | 2022-05-06 16:01 | W.OBNST ---
Date of service: 02/22/22 Time of Service: 13:00 NST Evaluation Reason for NST Reasons for Nonstress Test: ADVANCED MATERNAL AGE Gestational Age Gestational Age in Weeks and Days: 37 Weeks and 3Days Test and Monitor Explained Test/Monitor Explained: Test Explained, Monitor Explained and Patient Verbalized Understanding Vital Signs Blood Pressure: 126/74 Pulse: 75 Temperature: 98.2 F Urine Results Urine Protein: Negative Urine Ketones: Negative Urine Glucose: Negative Urine Blood: Negative NST Information Date on Monitor: 02/22/22 Time on Monitor: 10:40 Date off Monitor: 02/22/22 Time off Monitor: 11:01 Total Time on Monitor: 21 NST Interventions: None Contraction Frequency: irritability NST Evaluation Patient States Movement: Present FHR Baseline: 135 Variability: Moderate 6-25 bpm Accelerations: 15x15 Decelerations: None NST Results: Reactive Note NST Note NST Reviewed and Verified by: Em Lopez
[2022-05-06 16:02] VITALS: BP 126/74; PULSE 75; TEMP 36.8
== END 2022-02-22 11:30 | disposition home or self-care (01) ==
LOC: BCD 10:25 → OBS 10:36
PROVIDERS: Visit Provider Obstetrics & Gynecology Gynecology
DX: O09.523 Supervision of elderly multigravida, third trimester (principal)
CPT/HCPCS: 59025

== ENCOUNTER 2022-02-25 06:28 | Outpatient (CLI) | payer OTHER, MEDICAID, SELFPAY ==
[2022-02-25 13:32] VITALS: BP 127/69; PULSE 77; TEMP 37.1
[2022-02-25 13:41] VITALS: BP 127/69; PULSE 77
[2022-02-25 14:53] LABS: ROM Plus Negative
== END 2022-02-25 13:45 | disposition home or self-care (01) ==
LOC: BCD 07:19 → OBS 13:31
PROVIDERS: Visit Provider Obstetrics & Gynecology
DX: O09.523 Supervision of elderly multigravida, third trimester (principal)
CPT/HCPCS: 84112; 59025

== ENCOUNTER 2022-05-20 15:26 | Outpatient (REF) | payer OTHER, MEDICAID, SELFPAY ==
[2022-05-20 15:22] LABS: HCT 38.7 % (36.0-46.0); HGB 12.9 g/dL (11.2-15.7); MCH 29.1 pg (27.0-33.0); MCHC 33.3 % (32.0-36.0); MCV 87 fL (80-95); Platelet Count 331 10^3/uL (130-400); RBC 4.44 10^6/uL (3.93-5.22); RDW-SD 45.1 fL; WBC 7.75 10^3/uL (4.4-10.8)
[2022-05-20 15:42] LABS: ALT 24 U/L (14-59); AST 27 U/L (15-37); Albumin 4.4 g/dL (3.4-5.0); Alkaline Phosphatase 128 U/L (46-116); Anion Gap 10.5 mmol/L (3-11); BUN 11 mg/dL (7-18); Bilirubin, Total 0.3 mg/dL (0.2-1.0); CO2 25.5 mmol/L (21.0-32.0); CREATININE 0.7 mg/dL (0.55-1.02); Calcium 9.9 mg/dL (8.5-10.1); Chloride 105 mmol/L (98-107); Estimated GFR 110.67 (mL/min/1.73m2); Glucose 100 mg/dL (74-106); Lipase 83 U/L (73-393); Potassium 4.4 mmol/L (3.5-5.1); Sodium 141 mmol/L (136-145)
== END 2022-05-20 15:27 | disposition home or self-care (01) ==
LOC: NCHCN 15:26
PROVIDERS: PCP Physician Assistant; Visit Provider Physician Assistant
DX: R10.9 Unspecified abdominal pain (principal)
CPT/HCPCS: 80053; 83690; 85027

== ENCOUNTER 2022-07-03 18:41 | Outpatient (REF) | payer OTHER, MEDICAID, SELFPAY | END 2022-07-03 18:42 | disposition home or self-care (01) | LOC: LBN 18:41 | PROVIDERS: PCP Physician Assistant; Visit Provider Physician Assistant | DX: J02.9 Acute pharyngitis, unspecified (principal) | CPT/HCPCS: 87070 ==

== ENCOUNTER 2022-07-23 02:00 | Outpatient (CLI) | payer OTHER, MEDICAID, SELFPAY ==
[2022-07-23 07:46] LABS: Hemoglobin A1C 5.6 % (<5.7)
== END 2022-07-23 02:01 | disposition home or self-care (01) ==
LOC: LBO 02:01
PROVIDERS: PCP Physician Assistant; Visit Provider Obstetrics & Gynecology
DX: Z86.32 Personal history of gestational diabetes (principal)
CPT/HCPCS: 36415; 83036

== ENCOUNTER 2023-07-20 09:45 | Outpatient (REF) | payer OTHER, MEDICAID, SELFPAY ==
[2023-07-20 15:37] LABS: Abs Immature Grans 0.01 10^3/uL (0.0-0.06); Absolute Basophil Count 0.05 10^3/uL (0.0-0.2); Absolute Eosinophil Count 0.28 10^3/uL (0.0-0.7); Absolute Lymphocyte Count 1.79 10^3/uL (1.2-3.4); Absolute Monocyte Count 0.53 10^3/uL (0.1-0.8); Absolute Neutrophil Count 3.29 10^3/uL (1.2-6.7); Basophils % 0.8; Eosinophils % 4.7; HCT 34.9 % (36.0-46.0); HGB 11.2 g/dL (11.2-15.7); Immature Grans % 0.2; Lymphocytes % 30.1; MCH 27.6 pg (27.0-33.0); MCHC 32.1 % (32.0-36.0); MCV 86 fL (80-95); MPV 9.9 fL (8.0-11.0); Monocytes % 8.9; Neutrophils % 55.3; Platelet Count 315 10^3/uL (130-400); RBC 4.06 10^6/uL (3.93-5.22); RDW 13.9 % (11.7-14.6); RDW-SD 43.5 fL; WBC 5.95 10^3/uL (4.4-10.8)
[2023-07-20 16:30] LABS: ALT 18 U/L (14-59); AST 13 U/L (15-37); Albumin 4.2 g/dL (3.4-5.0); Alkaline Phosphatase 102 U/L (46-116); Anion Gap 8.8 mmol/L (3-11); BUN 14 mg/dL (7-18); Bilirubin, Total 0.3 mg/dL (0.2-1.0); CO2 27.2 mmol/L (21.0-32.0); CREATININE 0.7 mg/dL (0.55-1.02); Calcium 9.2 mg/dL (8.5-10.1); Chloride 105 mmol/L (98-107); Estimated GFR 109.98 (mL/min/1.73m2); Glucose 88 mg/dL (74-106); Lipase 30 U/L (16-77); Potassium 4.7 mmol/L (3.5-5.1); Sodium 141 mmol/L (136-145); Total Protein 7.3 g/dL (6.4-8.2)
== END 2023-07-20 09:46 | disposition home or self-care (01) ==
LOC: NCHCN 09:45
PROVIDERS: PCP Physician Assistant; Visit Provider Physician Assistant
DX: R10.9 Unspecified abdominal pain (principal)
CPT/HCPCS: 80053; 83690; 85025

== ENCOUNTER 2024-10-16 10:23 | Outpatient (CLI) | payer OTHER, SELFPAY ==
[2024-10-16 10:45] LABS: HCT 31.6 % (36.0-46.0); HGB 9.4 g/dL (11.2-15.7); MCH 22.5 pg (27.0-33.0); MCHC 29.7 % (32.0-36.0); MCV 76 fL (80-95); Platelet Count 318 10^3/uL (130-400); RBC 4.18 10^6/uL (3.93-5.22); RDW 14.6 % (11.7-14.6); RDW-SD 39.9 fL; WBC 7.73 10^3/uL (4.4-10.8)
[2024-10-16 11:13] LABS: Hemoglobin A1C 5.9 % (<5.7)
[2024-10-16 11:19] LABS: Anion Gap 4.2 mmol/L (3-11); BUN 11 mg/dL (7-18); CO2 29.8 mmol/L (21.0-32.0); CREATININE 0.9 mg/dL (0.55-1.02); Calcium 8.8 mg/dL (8.5-10.1); Calculated LDL 82 mg/dL (<100); Chloride 103 mmol/L (98-107); Cholesterol 156 mg/dL (<200); Estimated GFR 80.84 (mL/min/1.73m2); Glucose 98 mg/dL (74-106); HDL Cholesterol 60 mg/dL (>or=50); Potassium 4.3 mmol/L (3.5-5.1); Sodium 137 mmol/L (136-145); Triglyceride 70 mg/dL (<150)
[2024-10-16 14:05] LABS: Ferritin 4 ng/mL (8-252)
== END 2024-10-16 10:24 | disposition home or self-care (01) ==
PROVIDERS: PCP Physician Assistant; Visit Provider Physician Assistant
DX: D64.9 Anemia, unspecified (principal); I10 Essential (primary) hypertension; Z00.00 Encounter for general adult medical examination without abnormal findings
CPT/HCPCS: 36415; 80048; 80061; 85027; 82728; 83036

== ENCOUNTER 2024-10-31 14:24 | Outpatient (CLI) | payer OTHER, SELFPAY ==
[2024-10-31 14:33] LABS: HCT 31.2 % (36.0-46.0); HGB 9.3 g/dL (11.2-15.7); MCH 22.5 pg (27.0-33.0); MCHC 29.8 % (32.0-36.0); MCV 76 fL (80-95); MPV 9.5 fL (8.0-11.0); Platelet Count 374 10^3/uL (130-400); RBC 4.13 10^6/uL (3.93-5.22); RDW 14.6 % (11.7-14.6); RDW-SD 39.9 fL; WBC 6.67 10^3/uL (4.4-10.8)
[2024-10-31 15:32] LABS: Iron 28 ug/dL (50-170); Total Iron Binding Capacity 474 ug/dL (250-450); Transferrin Sat 6 % (15-50)
[2024-10-31 15:45] LABS: Ferritin 4 ng/mL (8-252)
== END 2024-10-31 14:25 | disposition home or self-care (01) ==
LOC: LBO 14:25
PROVIDERS: PCP Physician Assistant; Visit Provider Physician Assistant
DX: D50.9 Iron deficiency anemia, unspecified (principal)
CPT/HCPCS: 36415; 85027; 82728; 83540; 83550

== ENCOUNTER 2025-01-17 16:09 | Outpatient (CLI) | payer OTHER, SELFPAY ==
[2025-01-17 16:10] LABS: HCT 30.0 % (36.0-46.0); HGB 8.9 g/dL (11.2-15.7); MCH 22.1 pg (27.0-33.0); MCHC 29.7 % (32.0-36.0); Platelet Count 383 10^3/uL (130-400); RBC 4.02 10^6/uL (3.93-5.22); RDW 15.9 % (11.7-14.6); RDW-SD 43.4 fL; WBC 7.98 10^3/uL (4.4-10.8)
[2025-01-17 16:27] LABS: MCV 75 fL (80-95)
[2025-01-17 16:28] LABS: MPV 9.3 fL (8.0-11.0)
[2025-01-17 17:19] LABS: Ferritin 4 ng/mL (8-252)
[2025-01-17 17:28] LABS: Iron 35 ug/dL (50-170); Total Iron Binding Capacity 447 ug/dL (250-450); Transferrin Sat 8 % (15-50)
== END 2025-01-17 16:10 | disposition home or self-care (01) ==
PROVIDERS: PCP Physician Assistant; Visit Provider Physician Assistant
DX: N93.8 Other specified abnormal uterine and vaginal bleeding (principal)
CPT/HCPCS: 36415; 85027; 82728; 83540; 83550

== ENCOUNTER 2025-02-20 15:50 | Outpatient (REF) | payer OTHER, SELFPAY ==
--- NOTE | 2025-02-20 15:30 | ENDOMET_PTH ---
PATIENT: Charla Ellison LOC: [facility] U#:[id number] AGE/SX: 44/F ROOM: RE02/20/[address]: Dorothy Gonsalez DO : 1980 BED: DIS: 02/20/2025 SPEC #: [id number] RECD: 02/20/25 17:50 STATUS: NIVIA REQ #: [id number] BONNIE: 02/20/25 15:[address]: Dorothy Gonsalez DEPT: Surgical Specimen RECD BY: Rebecca Pedraza ENTERED: 02/20/25 17:50 SP TYPE: Endomet OTHR DR: Cesar Parks Tissues: 1 - ENDOMETRIUM BX/AMANDA Procedures: GROSS AND MICRO LEVEL 4 Comments: [id number]
== END 2025-02-20 15:51 | disposition home or self-care (01) ==
LOC: LBN 15:50
PROVIDERS: PCP Physician Assistant; Visit Provider Obstetrics & Gynecology
DX: N85.8 Other specified noninflammatory disorders of uterus (principal)
CPT/HCPCS: 88305

== ENCOUNTER → 2025-03-04 02:32 | Outpatient (CLI) | payer OTHER, SELFPAY ==
--- NOTE | 2025-03-04 | DI.MAMMO_ITS ---
Exam(s) MAMMO SCREENING EXAM: MAMMO SCREENING CLINICAL HISTORY: Z12.31 Screening. TECHNIQUE: Bilateral full field digital CC and MLO mammographic images were obtained with 3D tomosynthesis and utilizing computer aided detection (CAD). COMPARISON: None. This is a baseline mammogram on a 45-year-old.. FINDINGS: Fibroglandular tissue pattern is heterogeneously dense. The anterior aspect of the left breast there is a slightly lobulated noncalcified well-defined nodule measuring 1.1 by 0.9 cm, located 2 cm in from the nipple. Further imaging recommended. In the opposite-right breast there is a lobulated noncalcified nodule located medially which measures approximately 9 by 5 mm, 8 cm in from the nipple, medial of center. Further imaging required. There are no malignant-appearing microcalcification groups in either breast. There is no significant architectural distortion nor skin thickening-retraction. IMPRESSION: There is an 11 x 9 mm nodule in the left breast and there is a 9 x 5 mm nodule in the right breast. Bilateral breast ultrasound recommended to determine if these are solid or cystic. BI-RADS Category 0 - Incomplete: Need additional imaging evaluation Breast Density - Category C - The breast are heterogeneously dense, which may obscure small masses. Breast density Category C or D implies that the patient has dense breast tissue. Dense breast tissue can make it harder to find cancer on a mammogram. Dense breast tissue is also associated with an increased risk of breast cancer. This information about the result of the mammogram report was provided to the patient to raise their awareness. Use this report when you speak with the patient about their risks for breast cancer, which includes their family history. At that time, you may recommend additional screening tests (Ultrasound or MRI) as these tests may add significant information. A negative radiographic report should not delay biopsy if a dominant or clinically suspicious mass is present. Up to ten percent of cancers are not identified on mammography. A negative report may reinforce clinical impression. Adenosis and dense breasts may obscure an underlying neoplasm. False positive reports average 6 to 10%. Patient will receive a letter notifying them of these results.
== END ==
LOC: DI 02:32
PROVIDERS: PCP Physician Assistant; Visit Provider Physician Assistant
DX: Z12.31 Encounter for screening mammogram for malignant neoplasm of breast (principal); N63.10 Unspecified lump in the right breast, unspecified quadrant; N63.20 Unspecified lump in the left breast, unspecified quadrant; R92.333 Mammographic heterogeneous density, bilateral breasts
CPT/HCPCS: 77063; 77067

== ENCOUNTER 2025-04-01 12:57 | Outpatient (CLI) | payer OTHER, SELFPAY ==
[2025-03-29 17:07] LABS: HCT 32.9 % (36.0-46.0); HGB 9.6 g/dL (11.2-15.7); MCH 22.1 pg (27.0-33.0); MCHC 29.2 % (32.0-36.0); MCV 76 fL (80-95); MPV 9.6 fL (8.0-11.0); Platelet Count 462 10^3/uL (130-400); RBC 4.35 10^6/uL (3.93-5.22); RDW 18.2 % (11.7-14.6); RDW-SD 49.0 fL; WBC 10.00 10^3/uL (4.4-10.8)
[2025-03-29 18:16] LABS: Iron 29 ug/dL (50-170)
[2025-03-29 18:17] LABS: Total Iron Binding Capacity 485 ug/dL (250-425)
[2025-03-29 18:35] LABS: Ferritin 10 ng/mL (7-271)
== END 2025-04-01 12:58 | disposition home or self-care (01) ==
LOC: LBO 12:58
PROVIDERS: PCP Physician Assistant; Visit Provider Physician Assistant
DX: D50.9 Iron deficiency anemia, unspecified (principal)
CPT/HCPCS: 36415; 85027; 82728; 83540; 83550